=== PATIENT | male | born 1990 | race Caucasian/White ===

== ENCOUNTER 2018-03-13 10:27 | Emergency (ER) | payer SELFPAY ==
--- NOTE | 2018-03-13 11:09 | EDPHYS ---
Physician Documentation [facility] Name: Aaron Link Age: 27 yrs Sex: Male : 1990 Arrival Date: 03/13/2018 Time: 10:31 Bed 23 Private MD: None, None ED Physician Anthony Lockwood HPI: 03/13 11:02 This 27 yrs old Male presents to ER via Ambulatory with complaints of Foreign jr8 Body In Eye. 11:02 The patient is experiencing burning, pain, redness, tearing, to the right eye. Onset: jr8 The symptoms/episode began/occurred acutely, today. Duration: the symptoms are continuous. Aggravated by light, opening eye. Associated signs and symptoms: Pertinent positives: None. Patient does not utilize any form of vision correction. Severity of symptoms: At their worst the symptoms were moderate in the emergency department the symptoms are unchanged. The patient has experienced a previous episode. The patient has not recently seen a physician. Patient stated that while at work had piece of metal go into his right eye. Was wearing goggles but managed to go under his goggles. Historical: - Allergies: 10:35 Amoxicillin; aj1 - Home Meds: 10:35 None [Active]; aj1 - PMHx: 10:35 Asthma; aj1 - PSHx: 10:35 Tonsillectomy; aj1 - Immunization history:: Flu vaccine is not up to date. - Social history:: Smoking status: Patient/guardian denies using tobacco. - Ebola Screening: : Patient denies travel to an Ebola-affected area in the 21 days before illness onset. ROS: 11:02 ENT: Negative for injury, pain, and discharge, Neck: Negative for injury, pain, and jr8 swelling, Cardiovascular: Negative for chest pain, palpitations, and edema, Respiratory: Negative for shortness of breath, cough, wheezing, and pleuritic chest pain, Abdomen/GI: Negative for abdominal pain, nausea, vomiting, diarrhea, and constipation, Back: Negative for injury and pain, MS/Extremity: Negative for injury and deformity, Skin: Negative for injury, rash, and discoloration, Neuro: Negative for headache, weakness, numbness, tingling, and seizure. 11:02 Eyes: Positive for pain, redness, tearing, of the right eye. Exam: 11:02 Visual Acuity: I have reviewed the nursing documentation. jr8 11:02 Head/Face: Normocephalic, atraumatic. ENT: Nares patent. No nasal discharge, no septal abnormalities noted. Tympanic membranes are normal and external auditory canals are clear. Oropharynx with no redness, swelling, or masses, exudates, or evidence of obstruction, uvula midline. Mucous membranes moist. Neck: Trachea midline, no thyromegaly or masses palpated, and no cervical lymphadenopathy. Supple, full range of motion without nuchal rigidity, or vertebral point tenderness. No Meningismus. Cardiovascular: Regular rate and rhythm with a normal S1 and S2. No gallops, murmurs, or rubs. Normal PMI, no JVD. No pulse deficits. Respiratory: Lungs have equal breath sounds bilaterally, clear to auscultation and percussion. No rales, rhonchi or wheezes noted. No increased work of breathing, no retractions or nasal flaring. Skin: Warm, dry with normal turgor. Normal color with no rashes, no lesions, and no evidence of cellulitis. MS/ Extremity: Pulses equal, no cyanosis. Neurovascular intact. Full, normal range of motion. Neuro: Awake and alert, GCS 15, oriented to person, place, time, and situation. Cranial nerves II-XII grossly intact. Motor strength 5/5 in all extremities. Sensory grossly intact. Cerebellar exam normal. Normal gait. 11:02 Eyes: Periorbital structures: appear normal, Pupils: equal, round, and reactive to light and accomodation, Extraocular movements: intact throughout, Conjunctiva: injected, in the right eye, tearing noted, in right eye, Corneas: abrasion, that is small, approximately 2 mm(s), on the right, at 6 o'clock, a fluorescein strip employed to appreciate the findings, Sclera: no appreciated abnormality, Anterior chamber: normal, no hyphema, Lids and lashes: approximately 3 mm metal shard noted ot medial canthal region. Superficial tear seen to canthus. No bleeding. No laceration . Examination of the other eye reveals no obvious gross abnormality. Vital Signs: 10:35 BP 158 / 90; Pulse 78; Resp 18; Temp 98.8(TE); Pulse Ox 98% on R/A; Weight 102.06 kg aj1 (R); Height 6 ft. 0 in. (182.88 cm) (R); 10:35 Body Mass Index 30.52 (102.06 kg, 182.88 cm) aj1 Visual Acuity: 11:14 Left Eye Visual acuity 20/20, Pupil size 4 mm, Normal, Brisk, React To Light, Reactive ss To Accomodation; Right Eye Visual acuity 20/20, Pupil size 4 mm, Normal, Brisk, React To Light, Reactive To Accomodation; Both Eyes Visual acuity 20/20; Without Lenses; Procedures: 11:02 Eye Exam: Fluorescein. jr8 11:02 Foreign Body Removal: a piece of metal, from the right eye, conjunctiva by using jr8 alligator clamps, The patient tolerated the removal well. MDM: 10:43 Patient medically screened. jr8 11:02 Data reviewed: vital signs, nurses notes, and as a result, I will discharge patient. jr8 Data interpreted: Pulse oximetry: on room air is 98 %. Interpretation: normal. Counseling: I had a detailed discussion with the patient and/or guardian regarding: the historical points, exam findings, and any diagnostic results supporting the discharge/admit diagnosis, the need for outpatient follow up, an opthalmologist, to return to the emergency department if symptoms worsen or persist or if there are any questions or concerns that arise at home. 03/13 11:03 Order name: Fluoresene Opth strip; Complete Time: 11:03 ss 03/13 11:13 Order name: Visual Acuity; Complete Time: 11:13 ss Administered Medications: 10:52 Drug: Tetracaine Drops 0.5 % 1 drops Route: Ophthalmic; Site: right eye; ss Disposition: 16:47 Co-signature as Attending Physician, Anthony Lockwood MD. rn Disposition: 03/13/18 11:08 Discharged to Home. Impression: Foreign body in conjunctival sac, right eye, Injury of conjunctiva and corneal abrasion without foreign body. - Condition is Stable. - Discharge Instructions: Corneal Abrasion. - Prescriptions for Gentamicin 0.3 % Ophthalmic Drops - instill 2 drops by OPHTHALMIC route every 4 hours for 7 days; 1 bottle. - Medication Reconciliation Form, Thank You Letter, Antibiotic Education, Prescription Opioid Use form. - Follow up: Matthew Montemayor MD; When: 2 - 3 days; Reason: Recheck today's complaints, Continuance of care, Re-evaluation by your physician. - Problem is new. - Symptoms have improved. Signatures: Mamie Griffin RN RN aj1 Anthony Lockwood MD MD rn Smirch, Shelby, RN RN ss Roszak, Josh, PA PA jr8 Corrections: (The following items were deleted from the chart) 11:16 11:08 03/13/2018 11:08 Discharged to Home. Impression: Foreign body in conjunctival ss sac, right eye; Injury of conjunctiva and corneal abrasion without foreign body. Condition is Stable. Forms are Medication Reconciliation Form, Thank You Letter, Antibiotic Education, Prescription Opioid Use. Follow up: Matthew Montemayor; When: 2 - 3 days; Reason: Recheck today's complaints, Continuance of care, Re-evaluation by your physician. Problem is new. Symptoms have improved. jr8
--- NOTE | 2018-03-13 11:09 | ER ---
Nurse's Notes [facility] Name: Aaron Link Age: 27 yrs Sex: Male : 1990 Arrival Date: 03/13/2018 Time: 10:31 Bed 23 Private MD: None, None Diagnosis: Foreign body in conjunctival sac, right eye;Injury of conjunctiva and corneal abrasion without foreign body Presentation: 03/13 10:33 Presenting complaint: Patient states: He was grinding metal and a shard came up and hit aj1 him in the right eye. He went to an eye wash station and washed his eye out for a few seconds but it did not help. Reports pain to right eye. Denies any vision changes. Sclera is reddened to right eye. Transition of care: patient was not received from another setting of care. Onset of symptoms was March 13, 2018 at 10:20. Risk Assessment: Do you want to hurt yourself or someone else? Patient reports no desire to harm self or others. Initial Sepsis Screen: Does the patient meet any 2 criteria? No. Patient's initial sepsis screen is negative. Does the patient have a suspected source of infection? No. Patient's initial sepsis screen is negative. Care prior to arrival: None. 10:33 Method Of Arrival: Ambulatory aj1 10:33 Acuity: CATRACHITA 4 aj1 Triage Assessment: 10:35 General: Appears in no apparent distress. uncomfortable, Behavior is calm, cooperative, aj1 appropriate for age. Pain: Complains of pain in right eye Pain currently is 5 out of 10 on a pain scale. Quality of pain is described as burning, Pain began 15 minutes ago Is intermittent. EENT: Sclera/Cornea are reddened in outer aspect of conjuctiva of right eye, iris of right eye and inner aspect of conjuctiva of right eye Denies blurred vision drainage from right eye. Neuro: Level of Consciousness is awake, alert, obeys commands, Oriented to person, place, time, situation. Cardiovascular: Patient's skin is warm and dry. Respiratory: Airway is patent Respiratory effort is even, unlabored, Respiratory pattern is regular, symmetrical. Derm: Skin is pink, warm \\T\\ dry. normal. Historical: - Allergies: 10:35 Amoxicillin; aj1 - Home Meds: 10:35 None [Active]; aj1 - PMHx: 10:35 Asthma; aj1 - PSHx: 10:35 Tonsillectomy; aj1 - Immunization history:: Flu vaccine is not up to date. - Social history:: Smoking status: Patient/guardian denies using tobacco. - Ebola Screening: : Patient denies travel to an Ebola-affected area in the 21 days before illness onset. Screenin:42 Abuse screen: Denies threats or abuse. Denies injuries from another. Nutritional aj1 screening: No deficits noted. Tuberculosis screening: No symptoms or risk factors identified. Fall Risk None identified. Assessment: 10:42 General: Appears in no apparent distress. uncomfortable, Behavior is calm, cooperative, aj1 appropriate for age. Pain: Complains of pain in right eye Pain does not radiate. Quality of pain is described as burning. Neuro: Level of Consciousness is awake, alert, obeys commands, Oriented to person, place, time, situation. Cardiovascular: Patient's skin is warm and dry. Respiratory: Airway is patent Respiratory effort is even, unlabored, Respiratory pattern is regular, symmetrical. GI: No signs and/or symptoms were reported involving the gastrointestinal system. : No signs and/or symptoms were reported regarding the genitourinary system. EENT: Sclera/Cornea are reddened in outer aspect of conjuctiva of right eye, iris of right eye and inner aspect of conjuctiva of right eye Denies blurred vision. Derm: No signs and/or symptoms reported regarding the dermatologic system. Skin is pink, warm \\T\\ dry. normal. Musculoskeletal: No signs and/or symptoms reported regarding the musculoskeletal system. Circulation, motion, and sensation intact. 10:59 Reassessment: assisted FLORA Meyers with removal of foreign body of R eye. Removal ss successful, patient tolerated well. Removed with alligator forceps 3-07/16". Vital Signs: 10:35 BP 158 / 90; Pulse 78; Resp 18; Temp 98.8(TE); Pulse Ox 98% on R/A; Weight 102.06 kg aj1 (R); Height 6 ft. 0 in. (182.88 cm) (R); 10:35 Body Mass Index 30.52 (102.06 kg, 182.88 cm) aj Visual Acuity: 11:14 Left Eye Visual acuity 20/20, Pupil size 4 mm, Normal, Brisk, React To Light, Reactive ss To Accomodation; Right Eye Visual acuity 20/20, Pupil size 4 mm, Normal, Brisk, React To Light, Reactive To Accomodation; Both Eyes Visual acuity 20/20; Without Lenses; ED Course: 10:31 Patient arrived in ED. sb2 10:32 None, None is Private Physician. sb2 10:35 Triage completed. aj1 10:35 Arm band placed on Patient placed in an exam room. aj1 10:42 Duarte Rodríguez PA is PHCP. jr8 10:42 Patient has correct armband on for positive identification. Bed in low position. Call aj1 light in reach. Side rails up X 1. 10:42 No provider procedures requiring assistance completed. aj1 10:43 Anthony Lockwood MD is Attending Physician. jr8 10:59 Iraida Beck RN is Primary Nurse. ss 10:59 Patient did not have IV access during this emergency room visit. ss 11:07 Matthew Montemayor MD is Referral Physician. jr8 Administered Medications: 10:52 Drug: Tetracaine Drops 0.5 % 1 drops Route: Ophthalmic; Site: right eye; Outcome: 11:08 Discharge ordered by . jr8 11:15 Discharged to home ambulatory. ss 11:15 Condition: good 11:15 Discharge instructions given to patient, friend, Instructed on discharge instructions, follow up and referral plans. medication usage, Demonstrated understanding of instructions, follow-up care, medications, Prescriptions given X 1. 11:16 Patient left the ED. ss Signatures: Mamie Griffin RN RN aj1 Iraida Beck, KOREY RN Duarte Rodríguez PA PA jr8 Shanice Barrett sb2
== END 2018-03-13 11:16 | disposition home or self-care (01) ==
LOC: ER 10:27
PROC: 08CSXZZ Extirpation of Matter from Right Conjunctiva, External Approach (ICD-10-PCS; principal; 2018-03-13)
DX: T15.11XA Foreign body in conjunctival sac, right eye, initial encounter (principal); S05.01XA Injury of conjunctiva and corneal abrasion without foreign body, right eye, initial encounter; X58.XXXA Exposure to other specified factors, initial encounter; Y93.89 Activity, other specified; Y92.89 Other specified places as the place of occurrence of the external cause; Y99.8 Other external cause status; Z88.1 Allergy status to other antibiotic agents
CPT/HCPCS: 99283

== ENCOUNTER 2021-08-20 01:21 | Emergency (ER) | payer BC, SELFPAY ==
--- OUTSIDE RECORDS SUMMARY | 2021-08-20 01:23 | XMS REPORT | Continuity of Care Document ---
:1990 Author Organization [facility] t Address [address] [place] [address] Care Team Providers Name Role Phone Rogelio Srinivasan Attending Clinician Provider, Urgent Care Attending Clinician Unavailable Rogelio CAMPBELL Attending Clinician Unavailable Doctor Unassigned, Name Attending Clinician Unavailable Payers Payer Name Policy Type Policy Number Effective Date Expiration Date S ource Problems Condition Condition Condition Status Onset Resolution Last Treating Co mments Source Name Details Category Date Date Treatment Clinician Date No known No known Disease Unive rs active active ity of problems problems [facility] Allergies, Adverse Reactions, Alerts Allergy Allergy Status Severity Reaction(s) Onset Inactive Treating Comm ents Source Name Type Date Date Clinician AMOXICIL DRUG Active Unknown-Cmnt Un sue CARMINE INGREDI 07-21 ity of 00:00: [address] Amoxicil Drug Active Unknown - Allergy Univ ers carmine Allergy See comments 07-21 as a ity of 00:00: child [address] NO KNOWN Drug Active Univers ALLERGIE Class ity of S [facility] Social History Social Habit Start Date Stop Date Quantity Comments Source Exposure to Yes University of SARS-CoV-2 [facility] (event) [facility] Sex Assigned At [facility] [place] History [facility] 2020-07-21 2020-07-21 2 University o f Alcohol Frequency 00:00:00 00:00:00 [place] [facility] History [facility] 2020-07-21 2020-07-21 1 University o f Alcohol Std 00:00:00 00:00:00 [facility] History [facility] 2020-07-21 2020-07-21 1 University o f Alcohol Binge 00:00:00 00:00:00 [facility] Tobacco use and 2020-07-21 2020-07-21 Never used Universit y of exposure 00:00:00 00:00:00 [facility] Alcohol intake 2020-07-21 2020-07-21 Current drinker Unive rsity of 00:00:00 00:00:00 of alcohol [facility] (finding) Branch Smoking Status Start Date Stop Date Source Unknown if ever smoked [facility] Never smoker [facility] Medications Ordered Filled Start Stop Current Ordering Indication Dosage Frequency Signature Comments Components Source Medication Medication Date Date Medication? Clinician (SIG) Name Name albuterol Yes 2{puff} Inhale 2 U nivers 90 1-07 Puffs ity of mcg/actuati 19:36: every 6 Jonas as on inhaler 15 (six) Medical hours as Branch needed for Wheezing or Shortness of Breath. albuterol Yes 2{puff} Inhale 2 U nivers 90 1-07 Puffs ity of mcg/actuati 19:36: every 6 Jonas as on inhaler 15 (six) Medical hours as Branch needed for Wheezing or Shortness of Breath. montelukast Yes [id number] 10mg Take 1 Univers 10 mg 1-07 tablet by ity of tablet 00:00: mouth [place] 00 daily. Medical Branch montelukast Yes [id number] 10mg Take 1 Univers 10 mg 1-07 tablet by ity of tablet 00:00: mouth [place] 00 daily. [facility] Branch Vital Signs Vital Name Observation Time Observation Value Comments Source Systolic blood 2020-07-21 19:07:00 135 mm[Hg] Univer sity of pressure [facility] Diastolic blood 2020-07-21 19:07:00 87 mm[Hg] Unive rsity of [facility] Heart rate 2020-07-21 19:07:00 81 /min [facility] Body temperature 2020-07-21 19:07:00 36.72 P[facility] Respiratory rate 2020-07-21 19:07:00 18 /min [facility] Body height 2020-07-21 19:07:00 182.9 cm [facility] Body weight 2020-07-21 19:07:00 106.595 kg [facility] BMI 2020-07-21 19:07:00 31.87 kg/m2 Universi ty of [facility] Oxygen saturation in 2020-07-21 19:07:00 98 /min [facility] Arterial blood by [facility] Pulse oximetry Branch Procedures This patient has no known procedures. Encounters Start End Encounter Admission Attending Care Care Encounter Source Date/Time Date/Time Type Type Clinicians Facility Department ID 2020-08-29 2020-08-29 Refill Shannan [facility] [id number] Univers 00:00:00 00:00:00 Israel Mercado [facility] [id number] i ty of [place] [id number] Jonas as Professio [phone] [address] 2020-07-21 2020-07-21 Urgent Provider, [facility] Urgent Care [facility] [id number] Univers 12:52:49 13:44:10 Care Israel Campbell [facility] [id number] ity of [place] [id number] Jonas as Professio [phone] [address] 2020-07-21 2020-07-[address] [facility] [id number] Univers 13:00:00 13:00:00 ISRAEL russo [facility] 2020-07-21 2020-07-21 Letter Doctor GIOVANNY [id number] Univers 00:00:00 00:00:00 (Out) Unassigned, GIANNI [id number] ity of [place] [facility] [id number] Jonas as [phone] [place] [address] Branch Results This patient has no known results.
[2021-08-20] MEDS ORDERED: ONDANSETRON 4 MG/2 ML VIAL ONE (02:03)
[2021-08-20] MEDS ORDERED: FAMOTIDINE 20 MG/2 ML VIAL IV ONE (02:03)
[2021-08-20] MEDS ORDERED: NA CHLORIDE 0.9% 1,000 ML ONE (02:03)
[2021-08-20] MEDS ORDERED: MORPHINE 4 MG/ML SYR ONE (02:03)
[2021-08-20 02:14] LABS: Urine Blood Negative (Negative); Urine Glucose Negative (Negative); Urine Protein Negative (Negative); Urine Specific Gravity >=1.030 (1.005-1.030)
[2021-08-20 02:20] LABS: Absolute Lymphocytes (CBC) 3.5 K/uL (0.7-4.9); Hematocrit 42.5 % (39.6-49.0); Lymphocytes % 31.4 % (15.3-44.8); MPV 9.2 fL (7.6-11.3); RBC Red Blood Cell Count 4.89 M/uL (4.33-5.43)
[2021-08-20 02:28] LABS: Urine Bacteria <20 /HPF (NONE SEEN); Urine Mucus 2+ /HPF (NONE SEEN); Urine RBC <5 /HPF (NONE SEEN)
[2021-08-20 02:37] LABS: ALT/SGPT 35 U/L (12-78); AST/SGOT 18 U/L (15-37); Alkaline Phosphatase 83 U/L (45-117); BUN Blood Urea Nitrogen 16 mg/dL (7-18); Bicarbonate 26 mmol/L (21-32); Bilirubin Direct < 0.1 mg/dL (0-0.2); Bilirubin Total 0.3 mg/dL (0.2-1.0); Glucose Level 134 mg/dL (74-106); Lipase 48 U/L (73-393); Potassium 4.1 mmol/L (3.5-5.1); Protein, Total 8.3 g/dL (6.4-8.2); Sodium Level 137 mmol/L (136-145)
--- NOTE | 2021-08-20 04:37 | EDPHYS ---
Physician Documentation [facility] Name: Aaron Link Age: 31 yrs Sex: Male : 1990 Arrival Date: 08/20/2021 Time: 01:25 Bed 19 Private MD: ED Physician Fredo Peguero HPI: 08/20 02:10 This 31 yrs old Male presents to ER via Ambulatory with complaints of Abdominal Pain, cp Nausea/Vomiting. 02:10 The patient presents with abdominal pain in the upper abdomen. cp 02:11 Onset: The symptoms/episode began/occurred last night. The symptoms do not radiate. cp Associated signs and symptoms: Pertinent positives: nausea and vomiting, constipation, Pertinent negatives: chest pain, diarrhea, dysuria, fever. The symptoms are described as constant. Historical: - Allergies: 01:48 Amoxicillin; tw5 - Home Meds: 01:48 albuterol as needed [Active]; tw5 - PMHx: 01:48 Asthma; tw5 - PSHx: 01:48 None; tw5 - Immunization history:: Flu vaccine is not up to date. - Social history:: Smoking status: Patient denies any tobacco usage or history of. ROS: 02:11 Eyes: Negative for injury, pain, redness, and discharge. cp 02:11 Constitutional: Negative for body aches, chills, fever, poor PO intake. 02:11 Cardiovascular: Negative for chest pain, edema, palpitations. 02:11 Respiratory: Negative for cough, shortness of breath, wheezing. 02:11 Abdomen/GI: Positive for abdominal pain, nausea and vomiting, Negative for diarrhea, constipation, hematemesis, black/tarry stool, rectal bleeding. 02:11 Neuro: Negative for altered mental status, headache, weakness. 02:11 All other systems are negative. Exam: 02:12 Head/Face: Normocephalic, atraumatic. cp 02:12 Constitutional: The patient appears in no acute distress, alert, awake, non-diaphoretic, non-toxic, well developed, well nourished, uncomfortable. 02:12 Eyes: Periorbital structures: appear normal, Conjunctiva: normal, no exudate, no injection, Sclera: no appreciated abnormality, Lids and lashes: appear normal, bilaterally. 02:12 ENT: External ear(s): are unremarkable, Nose: is normal, Mouth: Lips: moist, Oral mucosa: moist, Posterior pharynx: Airway: no evidence of obstruction, patent. 02:12 Chest/axilla: Inspection: normal. 02:12 Cardiovascular: Rate: normal. 02:12 Respiratory: the patient does not display signs of respiratory distress, Respirations: normal, no use of accessory muscles, no retractions, labored breathing, is not present, Breath sounds: are clear throughout, no decreased breath sounds, no stridor, no wheezing. 02:12 Abdomen/GI: Inspection: abdomen appears normal, Bowel sounds: active, all quadrants, Palpation: soft, in all quadrants, severe abdominal tenderness, in the epigastric area and right upper quadrant, rebound tenderness, is not appreciated, voluntary guarding, is elicited in the epigastric area and right upper quadrant. 02:12 Neuro: Orientation: to person, place \T\ time. Mentation: is normal. Vital Signs: 01:45 BP 142 / 77; Pulse 71; Resp 18; Temp 98.0; Pulse Ox 98% on R/A; Weight 111.13 kg; tw5 Height 6 ft. 0 in. (182.88 cm); Pain 7/10; 02:15 BP 149 / 96; Pulse 55; Resp 18; Pulse Ox 98% on R/A; tw5 03:23 BP 118 / 103; Pulse 60; Resp 18; Pulse Ox 100% on R/A; Pain 2/10; tw5 03:56 BP 123 / 65; Pulse 62; Resp 18; Pulse Ox 100% on R/A; tw5 04:56 BP 121 / 82; Pulse 64; Resp 17 S; Pulse Ox 98% on R/A; lg3 01:45 Body Mass Index 33.23 (111.13 kg, 182.88 cm) tw5 MDM: 01:59 Patient medically screened. cp 02:15 Differential diagnosis: cholecystitis, Cholelithiasis, pancreatitis, Peptic Ulcer cp Disease, Perf. Duodenal Ulcer, Perf. Gastric Ulcer, Ureterolithiasis, urinary tract infection. 04:34 Differential diagnosis: Nonspecific abd pain, gastritis, cholecystitis, pancreatitis, mh7 viral gastroenteritis, gastroenteritis. Data reviewed: vital signs, nurses notes, lab test result(s), amylase and lipase, CBC, electrolytes, urinalysis, radiologic studies, CT scan. Data interpreted: Pulse oximetry: on room air is 100 %. Interpretation: normal. Counseling: I had a detailed discussion with the patient and/or guardian regarding: the historical points, exam findings, and any diagnostic results supporting the discharge/admit diagnosis, lab results, radiology results, the need for outpatient follow up, a general surgeon. Response to treatment: the patient's symptoms have resolved after treatment, the patient's blood pressure is in an acceptable range, mental status has returned to baseline, the patient no longer shows bradycardia, the patient is not short of breath, the patient is not tachycardic, the patient's pain is gone, the patient's temperature has normalized, patient is well hydrated. 08/20 01:58 Order name: Basic Metabolic Panel; Complete Time: 02:43 tw5 08/20 02:43 Interpretation: Normal except: GLUC 134; GFR 83. cp 08/20 01:58 Order name: CBC with Diff; Complete Time: 02:43 tw5 08/20 02:44 Interpretation: Normal except: WBC 11.20. cp 08/20 01:58 Order name: Hepatic Function; Complete Time: 02:43 tw5 08/20 02:44 Interpretation: Normal except: TP 8.3; GLOB 4.3; A/G 0.9. cp 08/20 01:58 Order name: Lipase; Complete Time: 02:43 tw5 08/20 01:59 Order name: Urine Microscopic Only cp 08/20 02:00 Order name: Urine Microscopic Only; Complete Time: 02:43 EDMS 08/20 01:58 Order name: IV Saline Lock; Complete Time: 02:10 tw5 08/20 01:59 Order name: CT Abd/Pelvis - IV Contrast Only cp 08/20 02:14 Order name: Urine Dipstick-Ancillary; Complete Time: 02:43 EDMS 08/20 02:16 Order name: XRAY Chest (1 view) cp 08/20 01:58 Order name: Labs collected and sent; Complete Time: 02:10 tw5 08/20 01:59 Order name: Urine Dipstick-Ancillary (obtain specimen); Complete Time: 02:16 cp Administered Medications: 02:10 Drug: NS 0.9% 1000 ml Route: IV; Rate: 1 bolus; Site: right antecubital; tw5 03:24 Follow up: Response: No adverse reaction; IV Status: Completed infusion; IV Intake: tw5 1000ml 02:10 Drug: Zofran (Ondansetron) 4 mg Route: IVP; Site: right antecubital; tw5 03:24 Follow up: Response: No adverse reaction 5 02:10 Drug: Pepcid (famotidine) 20 mg Route: IVP; Site: right antecubital; tw5 03:24 Follow up: Response: No adverse reaction 5 02:10 Drug: morphine 4 mg Route: IVP; Site: right antecubital; tw5 03:24 Follow up: Response: No adverse reaction; Pain is decreased; RASS: Alert and Calm (0) 5 Disposition: 05:20 Co-signature as Attending Physician, Fredo Peguero MD. [facility] Disposition Summary: 08/20/21 04:36 Discharge Ordered Location: Home [facility] Problem: new [facility] Symptoms: have improved [facility] Condition: Stable [facility] Diagnosis - Other cholelithiasis without obstruction [facility] Followup: [facility] - With: Private Physician - When: 1 - 2 days - Reason: Worsening of condition, Recheck today's complaints, Continuance of care, Re-evaluation by your physician Followup: [facility] - With: Guille Velasquez MD - When: 2 - 3 days - Reason: Worsening of condition, Recheck today's complaints Discharge Instructions: - Discharge Summary Sheet [facility] - Cholelithiasis, [id number] [facility] Forms: - Medication Reconciliation Form [facility] - Thank You Letter [facility] - Antibiotic Education [facility] - Prescription Opioid Use [facility] Prescriptions: - ondansetron 4 mg Oral tablet,disintegrating - place 1 tablet by TRANSLINGUAL route every 8 hours As needed; 10 tablet; [facility] Refills: 0, Product Selection Permitted - dicyclomine 20 mg Oral Tablet - take 1 tablet by ORAL route 4 times per day As needed; 20 tablet; Refills: 0, [facility] Product Selection Permitted - Tylenol-Codeine #3 300 mg-30 mg Oral - take 2 tablet by ORAL route every 6 hours As needed; 15 tablet; Refills: 0, [facility] Product Selection Permitted Signatures: Dispatcher [employer] EDIA Ayush Stoll PA PA cp Holmes, Maurice, MD MD [facility] Dior Wilburn 5
--- NOTE | 2021-08-20 04:37 | ER ---
Nurse's Notes [facility] Name: Aaron Link Age: 31 yrs Sex: Male : 1990 Arrival Date: 08/20/2021 Time: 01:25 Bed 19 Private MD: Diagnosis: Other cholelithiasis without obstruction Presentation: 08/20 01:45 Chief complaint: Patient states: "So I have been constipated for a while now at least 5 tw5 days. I had some food out for my wifes birthday on Saturday. I had abdominal pain, nausea, and it lasted for 10 hours. I woke up to her going into labor in [place]. The same pain started again around 9 last night and has gotten progressively worse over the past couple of hours with dry heaving. I feel like something gets stuck in my throat.". Coronavirus screen: Vaccine status: Patient reports receiving the 2nd dose of the covid vaccine. [employer]. Ebola Screen: Patient negative for fever greater than or equal to 101.5 degrees Fahrenheit, and additional compatible Ebola Virus Disease symptoms Patient denies exposure to infectious person. Patient denies travel to an Ebola-affected area in the 21 days before illness onset. Initial Sepsis Screen: Does the patient meet any 2 criteria? Yes Does the patient have a suspected source of infection? No. Patient's initial sepsis screen is negative. Risk Assessment: Do you want to hurt yourself or someone else? Patient reports no desire to harm self or others. Onset of symptoms is unknown. 01:45 Method Of Arrival: Ambulatory tw5 01:45 Acuity: CATRACHITA 3 tw5 Triage Assessment: 01:48 General: Appears uncomfortable, Behavior is cooperative, appropriate for age. Pain: tw5 Complains of pain in right upper quadrant and left upper quadrant Pain currently is 7 out of 10 on a pain scale. Quality of pain is described as crampy. GI: Reports constipation, nausea, vomiting. Historical: - Allergies: 01:48 Amoxicillin; tw5 - Home Meds: 01:48 albuterol as needed [Active]; tw5 - PMHx: 01:48 Asthma; tw5 - PSHx: 01:48 None; tw5 - Immunization history:: Flu vaccine is not up to date. - Social history:: Smoking status: Patient denies any tobacco usage or history of. Screenin:50 Abuse screen: Denies threats or abuse. Denies injuries from another. Nutritional tw5 screening: No deficits noted. Tuberculosis screening: No symptoms or risk factors identified. Fall Risk None identified. Assessment: 02:15 General: Appears uncomfortable, Behavior is calm, cooperative, appropriate for age. tw5 Pain: Pain currently is 7 out of 10 on a pain scale. at worst was 9 out of 10 on a pain scale. Cardiovascular: Capillary refill < 3 seconds is brisk in bilateral fingers. Respiratory:. GI: Bowel sounds Abdomen is tender to palpation in right upper quadrant and left upper quadrant. 03:23 Reassessment: Patient states feeling better. Patient states symptoms have improved. tw5 General: Reports " I am feeling a lot better, thank you.". Pain: Pain currently is 2 out of 10 on a pain scale. GI: nausea has improved. 03:56 Reassessment: Patient and/or family updated on plan of care and expected duration. Pain tw5 level reassessed. Patient is alert, oriented x 3, equal unlabored respirations, skin warm/dry/pink. Vital Signs: 01:45 BP 142 / 77; Pulse 71; Resp 18; Temp 98.0; Pulse Ox 98% on R/A; Weight 111.13 kg; tw5 Height 6 ft. 0 in. (182.88 cm); Pain 7/10; 02:15 BP 149 / 96; Pulse 55; Resp 18; Pulse Ox 98% on R/A; tw5 03:23 BP 118 / 103; Pulse 60; Resp 18; Pulse Ox 100% on R/A; Pain 2/10; tw5 03:56 BP 123 / 65; Pulse 62; Resp 18; Pulse Ox 100% on R/A; tw5 04:56 BP 121 / 82; Pulse 64; Resp 17 S; Pulse Ox 98% on R/A; lg3 01:45 Body Mass Index 33.23 (111.13 kg, 182.88 cm) tw5 ED Course: 01:25 Patient arrived in ED. ja2 01:48 Triage completed. tw5 01:48 Arm band placed on left wrist. tw5 01:52 Ayush Stoll PA is PHCP. cp 01:52 Fredo Peguero MD is Attending Physician. cp 01:58 Dior Wilburn is Primary Nurse. tw5 01:58 Initial lab(s) drawn, by me, sent to lab. Urine collected: clean catch specimen, clear, tw5 Amount Voided: 150mL. Inserted saline lock: 20 gauge in right antecubital area, using aseptic technique. Blood collected. 02:10 Basic Metabolic Panel Sent. tw5 02:10 CBC with Diff Sent. tw5 02:10 Hepatic Function Sent. tw5 02:10 Lipase Sent. tw5 02:15 Urine Microscopic Only Sent. tw5 02:15 Urine Microscopic Only Sent. tw5 02:34 XRAY Chest (1 view) In Process Unspecified. EDMS 03:13 CT Abd/Pelvis - IV Contrast Only In Process Unspecified. EDMS 03:56 Patient has correct armband on for positive identification. Placed in gown. Bed in low tw5 position. Call light in reach. Side rails up X 1. Side rails up X2. Adult w/ patient. Pulse ox on. NIBP on. Door closed. Noise minimized. Lights dimmed. Warm blanket given. Verbal reassurance given. Assisted to bathroom. 04:36 Guille Velasquez MD is Referral Physician. [facility] 04:55 No provider procedures requiring assistance completed. IV discontinued, intact, lg3 bleeding controlled, No redness/swelling at site. Pressure dressing applied. Administered Medications: 02:10 Drug: NS 0.9% 1000 ml Route: IV; Rate: 1 bolus; Site: right antecubital; tw5 03:24 Follow up: Response: No adverse reaction; IV Status: Completed infusion; IV Intake: tw5 1000ml 02:10 Drug: Zofran (Ondansetron) 4 mg Route: IVP; Site: right antecubital; tw5 03:24 Follow up: Response: No adverse reaction tw5 02:10 Drug: Pepcid (famotidine) 20 mg Route: IVP; Site: right antecubital; tw5 03:24 Follow up: Response: No adverse reaction tw5 02:10 Drug: morphine 4 mg Route: IVP; Site: right antecubital; tw5 03:24 Follow up: Response: No adverse reaction; Pain is decreased; RASS: Alert and Calm (0) tw5 Intake: 03:24 IV: 1000ml; Total: 1000ml. tw5 Outcome: 04:36 Discharge ordered by . mh7 04:55 Discharged to home ambulatory, with family. lg3 04:55 Condition: stable 04:55 Discharge instructions given to patient, Instructed on discharge instructions, follow up and referral plans. medication usage, Prescriptions given X 3. 04:56 Patient left the ED. lg3 Signatures: Dispatcher [employer] EDMS Ayush Stoll PA PA cp Gibson, Lacie, RN RN lg3 Fredo Peguero MD MD 7 Liliana Martin Dior Bill 5
[2021-08-20 05:08] VITALS: TEMP 98
[2021-08-20 05:13] VITALS: BP 121/82; O2SAT 98
--- NOTE | 2021-08-20 11:04 | RAD REPORT ---
EXAM DESCRIPTION: RAD - Chest Single View - 08/20/2021 2:35 am CLINICAL HISTORY: epigastric pain Chest pain. COMPARISON: No comparisons FINDINGS: Portable technique limits examination quality. Mildly prominent interstitial lung markings seen which could indicate mild viral infection. The heart is normal in size. No displaced fractures.
--- NOTE | 2021-08-21 11:54 | RAD REPORT ---
EXAM DESCRIPTION: Abdomen Pelvis W Contrast 08/20/2021 3:33 AM INFRASTRUCTURE TECH CLINICAL HISTORY: 31 years, Male, ABD PAIN COMPARISON: None. TECHNIQUE: Contrast-enhanced images of the abdomen and pelvis were performed utilizing 5 mm slice th ickness at 5 mm interval reconstruction from the lung bases to the ischial tuberosities after the adm inistration IV contrast. In addition multiplanar reformats in the coronal and sagittal plane were obtained and reviewed. This exam was performed according to our departmental dose-optimization protocol, which includes auto mated exposure control, adjustment of the mA and/or kV according to patient size and/or use of iterat kan reconstruction technique. FINDINGS: The lung bases demonstrate to be clear. The liver, pancreas, spleen and adrenal glands demonstrate to be unremarkable, no focal lesions are n oted. The gallbladder demonstrated presence of a small rim high density structures corresponding to c holelithiasis. There is no biliary duct dilatation. The kidneys demonstrate normal uptake of contrast media. No evidence for nephrolithiasis and/or hydro nephrosis. Grossly the unopacified stomach, small bowel and large bowel demonstrate to be within normal limits. There is no evidence for bowel dilatation/or free air. The appendix is normal. The urinary bladder demonstrate to be unremarkable. The prostate gland is normal. The aorta demon strate to be normal. There is no retroperitoneal lymphadenopathy. There is no evidence for ascites/ or abnormal fluid collections. The rest of the soft tissue and bony structures are within normal limi ts. IMPRESSION: Cholelithiasis. Otherwise unremarkable CT scan of the abdomen and pelvis with contrast. Electronically signed by: Daljit Smith MD 08/20/2021 3:35 AM INFRASTRUCTURE TECH Due to temporary technical issues with the PACS/Fluency reporting system, reports are being signed by the in house radiologist without review as a courtesy to ensure prompt reporting. The interpreting r adiologist is fully responsible for the content of the report.
== END 2021-08-20 04:56 | disposition home or self-care (01) ==
LOC: ER 01:21
DX: K80.80 Other cholelithiasis without obstruction (principal); Z88.1 Allergy status to other antibiotic agents
CPT/HCPCS: 96361; 85025; 80048; 36415; 80076; 83690; 74177; 71045; 96375; 96374; 99284; Q9967; J7030; J2405; 81003; 81015

== ENCOUNTER 2021-09-21 06:33 | Day surgery (SDC) | payer BC ==
[2021-09-19 10:38] LABS: Absolute Lymphocytes (CBC) 2.8 K/uL (0.7-4.9); Hematocrit 39.6 % (39.6-49.0); Lymphocytes % 39.4 % (15.3-44.8); RBC Red Blood Cell Count 4.65 M/uL (4.33-5.43)
[2021-09-19 10:54] LABS: ALT/SGPT 37 U/L (12-78); AST/SGOT 16 U/L (15-37); Alkaline Phosphatase 80 U/L (45-117); Amylase 34 U/L (25-115); BUN Blood Urea Nitrogen 14 mg/dL (7-18); Bicarbonate 26 mmol/L (21-32); Bilirubin Direct 0.2 mg/dL (0-0.2); Bilirubin Total 0.6 mg/dL (0.2-1.0); Glucose Level 97 mg/dL (74-106); Potassium 4.2 mmol/L (3.5-5.1); Protein, Total 7.9 g/dL (6.4-8.2); Sodium Level 139 mmol/L (136-145)
--- NOTE | 2021-09-19 12:49 | EKG ---
Test Date: 2021-09-19 Test Time: 10:23:35 Security Architect: CIRILO MEASUREMENT RESULTS: Intervals: Rate: 55 AK: 148 QRSD: 110 QT: 418 QTc: 399 [place]: P: 14 AK: 148 QRS: 69 T: 50 INTERPRETIVE STATEMENTS: Sinus bradycardia Otherwise normal ECG No previous ECG available for comparison Electronically Signed On 09-19-21 12:49:18 VEST MAKER by Andres Mejia
[2021-09-21] MEDS ORDERED: propofoL 200 MG/20 ML VIAL IV ONE (06:57)
[2021-09-21] MEDS ORDERED: ROCURONIUM 50 MG/5 ML VIAL IV ONE (06:58)
[2021-09-21] MEDS ORDERED: ONDANSETRON 4 MG/2 ML VIAL ONE ×2 (06:58→09:09)
[2021-09-21] MEDS ORDERED: dexAMETHasone 10 MG/ML VIAL ONE (06:58)
[2021-09-21] MEDS ORDERED: FENTANYL CITR 250 MCG/5 ML ONE (06:58)
[2021-09-21] MEDS ORDERED: MIDAZOLAM HCL 2 MG/2 ML INJ ONE (06:58)
[2021-09-21] MEDS ORDERED: LIDOCAINE 1% MPF 5 ML VIAL ONE (06:58)
[2021-09-21] MEDS ORDERED: CELECOXIB 100 MG CAPSULE ONE (07:10)
[2021-09-21] MEDS ORDERED: CEFOXITIN SODIUM 1 GM/VIAL ONE (07:10)
[2021-09-21] MEDS ORDERED: ACETAMINOPHEN 500 MG TAB ONE (07:10)
[2021-09-21] MEDS: Ringers Lactate 1,000 ML IV ONE ×2 (07:15→08:59)
[2021-09-21] MEDS ORDERED: Phenylephrine HCl 10 MG/ML 1 ML VIAL ONE (08:03)
[2021-09-21] MEDS ORDERED: Mastisol Adhesive Liq ONE (08:27)
[2021-09-21] MEDS ORDERED: KETOROLAC 30 MG/ML INJ ONE ×2 (08:29→09:37)
--- NOTE | 2021-09-21 08:37 | P.OP ---
Fan Balancer: Dinorah STOREY Preoperative diagnosis: Chronic cholecystitis and cholelithiasis Postoperative diagnosis: Same Primary procedure: Laparoscopic cholecystectomy Anesthesia: General Estimated blood loss: Minimal Specimen: Gallbladder Findings: As above Operative Technique: Patient brought to the OR and placed in the supine position. General anesthesia begun and patient prepped draped in the usual sterile fashion. Marcaine 0.5% infiltrated locally 15 blade used to make a 1 cm supraumbilical midline incision. Subtenons tissue divided and fascia identified and divided. #1 Vicryl stay sutures placed. Peritoneal cavity entered with sharp and blunt dissection. 12 mm trocar placed into the peritoneal cavity under direct vision. Pneumoperitoneum established and three 5 mm trochars placed under direct vision. One in the epigastric region just to the right of midline and two in the right subcostal region. Laparoscopy revealed chronic inflammation of the gallbladder. Fundus that identified and retracted superiorly. Infundibulum identified and retracted inferolaterally. Cystic duct and cystic artery clearly identified with blunt dissection. Clips placed and both structures divided. Gallbladder removed from the liver bed utilizing cautery. Bleeding on the liver bed controlled with cautery. Gallbladder was retrieved through the umbilicus via Endo Catch bag. Right upper quadrant irrigated and effluent was clear. There was no evidence of bleeding or bile leakage appreciated. Subsequently, all trochars were removed under direct vision. Stay sutures were tied to each other to reapproximate the fascial defect. 3-0 chromic was used to reapproximate subcutaneous tissue and closed skin. Sterile dressing applied and patient awakened. Patient taken to recovery room in good general condition. Transferred to: Recovery Room Condition: Good
[2021-09-21] MEDS: MEPERIDINE HCL 25 MG/ML SYR ONE ×2 (09:09→09:19)
[2021-09-21] MEDS: HYDROMORPHONE HCL 1 MG/ML INJ ONE ×6 (09:14→09:44)
[2021-09-21] MEDS ORDERED: HYDROCODONE/APAP 7.5/325 MG TAB PO ONE (10:06)
[2021-09-21 10:18] VITALS: TEMP 97.9
[2021-09-21] MEDS ORDERED: HYDROCODONE/APAP 7.5/325 MG TAB ONE (10:44)
[2021-09-21 11:06] VITALS: BP 113/46; O2SAT 97
== END 2021-09-21 11:40 | disposition home or self-care (01) ==
LOC: OR 06:33
PROVIDERS: ATTEND Surgery
PROC: 0FT44ZZ Resection of Gallbladder, Percutaneous Endoscopic Approach (ICD-10-PCS; principal; 2021-09-21 07:30)
DX: K80.10 Calculus of gallbladder with chronic cholecystitis without obstruction (principal); Z20.822 Contact with and (suspected) exposure to COVID-19; Z88.1 Allergy status to other antibiotic agents
CPT/HCPCS: 93005; 85025; 80048; 36415; 82150; 80076; 88304; 47562; U0003; J2704; J2370; J2250; J3010; J1100; J2175; J1170 ×3; J7120; J0694; J2405 ×2

== ENCOUNTER 2022-05-26 16:22 | Emergency (ER) | payer OTHER, BC ==
--- OUTSIDE RECORDS SUMMARY | 2022-05-26 16:25 | XMS REPORT | Continuity of Care Document ---
:1990 Author Organization [facility] t Address [address] [place] [address] [address] [place] [address] Care Team Providers Name Role Phone Starr Srinivasan Attending Clinician Provider, [facility] Attending Clinician Unavailable STARR CAMPBELL Attending Clinician Unavailable Doctor Unassigned, [place] Attending Clinician Unavailable Payers Payer Name Policy Type Policy Number Effective Date Expiration Date S ource Problems Condition Condition Condition Status Onset Resolution Last Treating Co mments Source Name Details Category Date Date Treatment Clinician Date No known No known Disease Unive rs active active ity of problems problems [facility] Allergies, Adverse Reactions, Alerts Allergy Allergy Status Severity Reaction(s) Onset Inactive Treating Comm ents Source Name Type Date Date Clinician AMOXICIL DRUG Active Unknown-Cmnt Un sue CARMINE INGREDI 07-21 ity of 00:00: [address] Amoxicil Drug Active Unknown - Allergy Univ ers carmine Allergy See comments 07-21 as a ity of 00:00: child [address] NO KNOWN Drug Active Univers ALLERGIE Class ity of S [facility] Social History Social Habit Start Date Stop Date Quantity Comments Source Exposure to Yes University of SARS-CoV-2 [place] [facility] (event) Branch Sex Assigned At Univers[facility] y of [place] [facility] [place] History [facility] 2020-07-21 2020-07-21 2 University o f Alcohol Frequency 00:00:00 00:00:00 [place] [facility] History SDMO 2020-07-21 2020-07-21 1 University o f Alcohol Std 00:00:00 00:00:00 [place] [facility] Drinks [facility] History SDOH 2020-07-21 2020-07-21 1 University o f Alcohol Binge 00:00:00 00:00:00 [place] [facility] Tobacco use and 2020-07-21 2020-07-21 Never used Universit y of exposure 00:00:00 00:00:00 [facility] Alcohol intake 2020-07-21 2020-07-21 Current drinker Unive rsity of 00:00:00 00:00:00 of alcohol [facility] (finding) Branch Smoking Status Start Date Stop Date Source Unknown if ever smoked [facility] Never smoker [facility] Medications Ordered Filled Start Stop Current Ordering [...] Wheezing or Shortness of Breath. montelukast Yes [id number] 10mg Take 1 Univers 10 mg 1-07 tablet by ity of tablet 00:00: mouth [place] 00 daily. [facility] Branch montelukast Yes [id number] 10mg Take 1 Univers 10 mg 1-07 tablet by ity of tablet 00:00: mouth [place] 00 daily. [facility] Vital Signs Vital Name Observation Time Observation Value Comments Source Systolic blood 2020-07-21 19:07:00 135 mm[Hg] Univer sity of pressure [facility] Diastolic blood 2020-07-21 19:07:00 87 mm[Hg] [facility] Heart rate 2020-07-21 19:07:00 81 /min [facility] Body temperature 2020-07-21 19:07:00 36.72 [facility] 2020-07-21 19:07:00 18 /min [facility] Body height 2020-07-21 19:07:00 182.9 cm [facility] Body weight 2020-07-21 19:07:00 106.595 kg [facility] BMI 2020-07-21 19:07:00 31.87 kg/m2 Universi ty of [facility] Oxygen saturation in 2020-07-21 19:07:00 98 /min [facility] Arterial blood by [facility] Pulse oximetry Branch Procedures This patient has no known procedures. Encounters Start End Encounter Admission Attending Care Care Encounter Source Date/Time Date/Time Type Type Clinicians Facility Department ID 2020-08-29 2020-08-29 Refill Shannan [facility] [id number] Univers 00:00:00 00:00:00 Starr Mercado [facility] [id number] i ty of [place] [id number] Jonas as Professio [id number] [address] 2020-07-21 2020-07-21 Urgent Provider, [facility] [id number] Univers 12:52:49 13:44:10 Care Starr Campbell [facility] [id number] ity of [place] [id number] Jonas as Professio [id number] [address] 2020-07-21 2020-07-[address] [facility] [id number] Univers 13:00:00 13:00:00 STARR russo [facility] 2020-07-21 2020-07-21 Letter Doctor GIOVANNY [id number] Univers 00:00:00 00:00:00 (Out) Unassigned, GIANNI [id number] ity of [place] [facility] [id number] Jonas as [phone] [place] [id number] Branch Results This patient has no known results.
[2022-05-26] MEDS ORDERED: FLUORESCEIN SODIUM 1 MG/WRAP ONE (16:32)
[2022-05-26] MEDS ORDERED: TETRACAINE HCL 0.5% 4ML OPTH ONE (16:32)
--- NOTE | 2022-05-26 16:48 | EDPHYS ---
Physician Documentation [facility] Name: Aaron Link Age: 32 yrs Sex: Male : 1990 Arrival Date: 05/26/2022 Time: 16:24 Bed 16 Private MD: ED Physician Ashley Vick HPI: 05/26 16:39 This 32 yrs old Unknown Male presents to ER via Ambulatory with complaints of Eye jl9 Injury. 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 . 16:39 The patient is experiencing pain, redness, tearing, The patient sustained Unknown. to jl9 the left eye, caused by an unknown mechanism. Onset: The symptoms/episode began/occurred just prior to arrival. Duration: the symptoms are continuous. Aggravated by blinking, Alleviated by nothing. Associated signs and symptoms: Pertinent positives:. Patient does not utilize any form of vision correction. Severity of symptoms: Pain is currently a 3 / 10. Historical: - Allergies: 16:35 Amoxicillin; jl7 - Home Meds: 16:35 albuterol as needed [Active]; jl7 - PMHx: 16:35 Asthma; jl7 - PSHx: 16:35 Tonsillectomy; Cholecystectomy; jl7 - Immunization history:: Adult Immunizations not up to date, Last tetanus immunization: > 10 years ago. - Social history:: Smoking status: Patient denies any tobacco usage or history of. ROS: 16:40 Constitutional: Negative for fever, chills, and weight loss. jl9 16:40 ENT: Negative for injury, pain, and discharge, Neck: Negative for injury, pain, and swelling, Cardiovascular: Negative for chest pain, palpitations, and edema, Respiratory: Negative for shortness of breath, cough, wheezing, and pleuritic chest pain, Abdomen/GI: Negative for abdominal pain, nausea, vomiting, diarrhea, and constipation, Back: Negative for injury and pain, : Negative for injury, bleeding, discharge, and swelling, MS/Extremity: Negative for injury and deformity, Skin: Negative for injury, rash, and discoloration, Neuro: Negative for headache, weakness, numbness, tingling, and seizure, Psych: Negative for depression, anxiety, suicide ideation, homicidal ideation, and hallucinations, Allergy/Immunology: Negative for hives, rash, and allergies, Endocrine: Negative for neck swelling, polydipsia, polyuria, polyphagia, and marked weight changes, Hematologic/Lymphatic: Negative for swollen nodes, abnormal bleeding, and unusual bruising. 16:40 Eyes: Positive for pain, redness, tearing. Exam: 16:44 Visual Acuity: I have reviewed the nursing documentation. jl9 16:44 Constitutional: This is a well developed, well nourished patient who is awake, alert, and in no acute distress. Head/Face: Normocephalic, atraumatic. 16:44 Neck: Trachea midline, no thyromegaly or masses palpated, and no cervical lymphadenopathy. Supple, full range of motion without nuchal rigidity, or vertebral point tenderness. No Meningismus. Chest/axilla: Normal chest wall appearance and motion. Nontender with no deformity. No lesions are appreciated. Cardiovascular: Regular rate and rhythm with a normal S1 and S2. No gallops, murmurs, or rubs. Normal PMI, no JVD. No pulse deficits. Respiratory: Lungs have equal breath sounds bilaterally, clear to auscultation and percussion. No rales, rhonchi or wheezes noted. No increased work of breathing, no retractions or nasal flaring. Abdomen/GI: Soft, non-tender, with normal bowel sounds. No distension or tympany. No guarding or rebound. No evidence of tenderness throughout. Back: No spinal tenderness. No costovertebral tenderness. Full range of motion. Skin: Warm, dry with normal turgor. Normal color with no rashes, no lesions, and no evidence of cellulitis. MS/ Extremity: Pulses equal, no cyanosis. Neurovascular intact. Full, normal range of motion. Neuro: Awake and alert, GCS 15, oriented to person, place, time, and situation. Cranial nerves II-XII grossly intact. Motor strength 5/5 in all extremities. Sensory grossly intact. Cerebellar exam normal. Normal gait. Psych: Awake, alert, with orientation to person, place and time. Behavior, mood, and affect are within normal limits. 16:44 Eyes: Periorbital structures: appear normal, Pupils: equal, round, and reactive to light and accomodation, Extraocular movements: intact throughout, Conjunctiva: injected, in the left eye, tearing noted, in left eye, Corneas: abrasion, on the left, at 3 o'clock, Sclera: Anterior chamber: normal, Lids and lashes: appear normal, funduscopic exam reveals no obvious abnormalities, Visual saenz: are intact, Nystagmus: is not appreciated, Examination of the other eye reveals no obvious gross abnormality, a slit lamp exam was employed for the exam. Vital Signs: 16:32 BP 128 / 88; Pulse 104; Resp 19; Temp 97.9; Pulse Ox 98% on R/A; Weight 106.59 kg; jl7 Height 6 ft. 0 in. (182.88 cm); Pain 4/10; 17:23 BP 123 / 76; Pulse 86; Resp 18; Pulse Ox 99% on R/A; kr3 16:32 Body Mass Index 31.87 (106.59 kg, 182.88 cm) jl7 MDM: 16:30 Patient medically screened. jl9 16:40 Data reviewed: vital signs, nurses notes. jl9 16:45 Counseling: I had a detailed discussion with the patient and/or guardian regarding: the jl9 historical points, exam findings, and any diagnostic results supporting the discharge/admit diagnosis, the need for outpatient follow up, to return to the emergency department if symptoms worsen or persist or if there are any questions or concerns that arise at home. Administered Medications: 16:50 Drug: irrigation 1 application Route: Mucous Membrane; kr3 19:36 Follow up: Response: No adverse reaction kr3 Disposition Summary: 05/26/22 16:47 Discharge Ordered Location: Home jl9 Condition: Stable jl9 Diagnosis - Injury of conjunctiva and corneal abrasion without foreign body jl9 Followup: jl9 - With: Misael Montemayor MD - When: 1 - 2 days - Reason: Recheck today's complaints, Continuance of care, Re-evaluation by your physician Discharge Instructions: - Discharge Summary Sheet jl9 - Corneal Abrasion, [id number] jl9 Forms: - Medication Reconciliation Form jl9 - Thank You Letter jl9 - Antibiotic Education jl9 - Prescription Opioid Use jl9 Prescriptions: - ofloxacin 0.3 % Ophthalmic drops - instill 2 drop by OPHTHALMIC route 4 times per day for 7 days; 2.5 milliliter; jl9 Refills: 0, Product Selection Permitted Signatures: Onofre Hernandes RN RN jl7 Daljit Spann jl9 Martha Roldan, RN RN kr3
--- NOTE | 2022-05-26 16:48 | ER ---
Nurse's Notes [facility] Name: Aaron Link Age: 32 yrs Sex: Male : 1990 Arrival Date: 05/26/2022 Time: 16:24 Bed 16 Private MD: Diagnosis: Injury of conjunctiva and corneal abrasion without foreign body Presentation: 05/26 16:32 Chief complaint: Patient states: Possible piece of metal to left eye, bleeding noted. jl7 Coronavirus screen: At this time, the client does not indicate any symptoms associated with coronavirus-19. Ebola Screen: No symptoms or risks identified at this time. Mechanism of Injury: No Mechanism of Injury. The patient denies any loss of vision. Initial Sepsis Screen: Does the patient meet any 2 criteria? No. Patient's initial sepsis screen is negative. Does the patient have a suspected source of infection? No. Patient's initial sepsis screen is negative. Risk Assessment: Do you want to hurt yourself or someone else? Patient reports no desire to harm self or others. Onset of symptoms was May 26, 2022. 16:32 Method Of Arrival: Ambulatory [facility] 16:32 Acuity: CATRACHITA 3 jl7 Triage Assessment: 16:35 General: Appears in no apparent distress. uncomfortable, Behavior is calm, cooperative, jl7 appropriate for age. Pain: Complains of pain in left eye. EENT: tearing with blood noted. Historical: - Allergies: 16:35 Amoxicillin; jl7 - Home Meds: 16:35 albuterol as needed [Active]; jl7 - PMHx: 16:35 Asthma; jl7 - PSHx: 16:35 Tonsillectomy; Cholecystectomy; jl7 - Immunization history:: Adult Immunizations not up to date, Last tetanus immunization: > 10 years ago. - Social history:: Smoking status: Patient denies any tobacco usage or history of. Screenin:24 Abuse screen: Denies threats or abuse. Nutritional screening: No deficits noted. kr3 Tuberculosis screening: No symptoms or risk factors identified. Fall Risk None identified. Assessment: 16:35 General: Appears in no apparent distress. uncomfortable, Behavior is calm, cooperative, kr3 appropriate for age. Pain: Complains of pain in left eye. 17:22 Cardiovascular: Patient's skin is warm and dry. Respiratory: Airway is patent kr3 Respiratory effort is even, unlabored, Respiratory pattern is regular, symmetrical. GI: No signs and/or symptoms were reported involving the gastrointestinal system. : No signs and/or symptoms were reported regarding the genitourinary system. EENT: Eyes are tearing on outer aspect of conjuctiva of left eye, iris of left eye and inner aspect of conjunctiva of left eye. 17:25 EENT: Sclera/Cornea w/ abrasion noted on inner aspect of conjunctiva of left eye. kr3 Vital Signs: 16:32 BP 128 / 88; Pulse 104; Resp 19; Temp 97.9; Pulse Ox 98% on R/A; Weight 106.59 kg; jl7 Height 6 ft. 0 in. (182.88 cm); Pain 4/10; 17:23 BP 123 / 76; Pulse 86; Resp 18; Pulse Ox 99% on R/A; kr3 16:32 Body Mass Index 31.87 (106.59 kg, 182.88 cm) jl7 ED Course: 16:24 Patient arrived in ED. am2 16:30 Daljit Spann is PHCP. jl9 16:30 Ashley Vick MD is Attending Physician. jl9 16:35 Triage completed. jl7 16:35 Arm band placed on right wrist. jl7 16:35 Bed in low position. Call light in reach. Side rails up X 1. kr3 16:47 Martha Roldan RN is Primary Nurse. kr3 16:47 Misael Montemayor MD is Referral Physician. jl9 17:24 No provider procedures requiring assistance completed. Patient did not have IV access kr3 during this emergency room visit. Administered Medications: 16:50 Drug: irrigation 1 application Route: Mucous Membrane; kr3 19:36 Follow up: Response: No adverse reaction kr3 Medication: 17:25 VIS not applicable for this client. kr3 Outcome: 16:47 Discharge ordered by . jl9 17:24 Discharged to home ambulatory. kr3 17:24 Condition: stable 17:24 Discharge instructions given to patient, Instructed on discharge instructions, follow up and referral plans. medication usage, Demonstrated understanding of instructions, follow-up care, medications, Prescriptions given X 1. 17:25 Patient left the ED. kr3 Signatures: Onofre Hernandes RN RN jl7 Marilynn Nicholson am2 Daljit Spann9 Martha Roldan, RN RN kr3 Corrections: (The following items were deleted from the chart) 17:14 16:30 irrigation 1 application Mucous Membrane kr3 kr3
[2022-05-26 17:40] VITALS: BP 123/76; TEMP 97.9; O2SAT 99
== END 2022-05-26 17:25 | disposition home or self-care (01) ==
LOC: ER 16:22
DX: S05.02XA Injury of conjunctiva and corneal abrasion without foreign body, left eye, initial encounter (principal); Z88.1 Allergy status to other antibiotic agents
CPT/HCPCS: 99283

== ENCOUNTER → 2023-07-10 | Emergency (ER) | payer BC ==
[~2023-07-10] MED LIST: ASPIRIN 81 MG CHEWABLE TABLET ONE; ONDANSETRON 4 MG (ODT) TAB ONE
--- OUTSIDE RECORDS SUMMARY | 2023-07-10 03:19 | XMS REPORT | Continuity of Care Document ---
Author Name Unknown Address [address] [facility]. [address] [place] [address] [facility]connect Address [address] [facility] [address] [place] [address] Care Team Providers Care Still Cleaner Name Role Phone Pcp, Patient Does Not Have A Primary Care Physic pepe Mike Murray MD Attending Clinician [phone] MIKE MURRAY Attending Clinician Unavailable Doctor Unassigned, [place] Attending Clinician U navailable PAULA ROBLES Attending Clinician Unavailable Paula Hunt Attending Clinician Starr Srinivasan Attending Clinician Provider, [facility] Attending Clinician Un available STARR CAMPBELL Attending Clinician Unavailable MIEK MURRAY Admitting Clinician Unavailable Mike Murray MD Admitting Clinician [phone] PAULA ROBLES Admitting Clinician Unavailable Payers Payer Name Policy Type Policy Number Effective Date Expirati on Date Source Problems Condition Name Condition Details Condition Category Status Onset Date Resolution Date Last Treatment Date Treating Clinician Comments Source Obesity (BMI 30-39.9) Obesity (BMI 30-39.9) Disease Active 2021-07 00:00: 00 [facility] Eye foreign body, left, initial encounter Eye foreign body, left, initial encounter Disease Active 2021-07 00:00: 00 Overview: Formattin g of this note might be different from the original. Added automatic ally from request for surgery [id number] [facility] No known active problems No known active problems Disease [facility] Allergies, Adverse Reactions, Alerts Allergy Name Allergy Type Status Severity Reaction(s) Onset Date Inactive Date Treating Clinician Comments Source AMOXICIL CARMINE DRUG INGREDI Active Unknown-Cmnt 07-21 00:00: 00 [facility] Amoxicil carmine Drug Allergy Active Unknown - See comments 07-21 00:00: 00 Allergy as a child [facility] NO KNOWN ALLERGIE S Drug Class Active [facility] Social History Social Habit Start Date Stop Date Quantity Comments Source Exposure to SARS-CoV-2 (event) 2022-08-25 00:00:00 2022-09-04 13:35:00 Not sure [facility] Alcohol intake 2022-09-04 00:00:00 2022-09-04 00:00:00 Current drinker of alcohol (finding) [facility] History SDOH Alcohol Frequency 2020-07-21 00:00:00 2020-07-21 00:00:00 2 [facility] History SDOH Alcohol Std Drinks 2020-07-21 00:00:00 2020-07-21 00:00:00 1 [facility] History SDOH Alcohol Binge 2020-07-21 00:00:00 2020-07-21 00:00:00 1 [facility] Tobacco use and exposure 2020-07-21 00:00:00 2020-07-21 00:00:00 Smokeless tobacco non-user [facility] Sex Assigned At 1990 00:00:00 1990 00:00:00 [facility] Smoking Status Start Date Stop Date Source Unknown if ever smoked [facility] Never smoked tobacco [facility] Medications Ordered Medication Name Filled Medication Name Start Date Stop Date Current Medication? Ordering Clinician Indication Dosage Frequency Signature (SIG) Comments Components Source neomycin-po lymyxin-hyd rocortisone 3.5-10,000- 1 mg/mL-unit/ mL-% otic susp 2021-07 2-20 13:44: 24 Yes 2[drp] Place 2 Drops in both ears 4 (four) times daily. [facility] neomycin-po lymyxin-hyd rocortisone 3.5-10,000- 1 mg/mL-unit/ mL-% otic susp 2021-07 13:44: 24 Yes 2[drp] Place 2 Drops in both ears 4 (four) times daily. [facility] neomycin-po lymyxin-hyd rocortisone 3.5-10,000- 1 mg/mL-unit/ mL-% otic susp 2021-07 13:44: 24 Yes 2[drp] Place 2 Drops in both ears 4 (four) times daily. [facility] neomycin-po lymyxin-hyd rocortisone 3.5-10,000- 1 mg/mL-unit/ mL-% otic susp 2021-07 13:44: 24 Yes 2[drp] Place 2 Drops in both ears 4 (four) times daily. [facility] prednisoLON E acetate 1 % ophthalmic suspension drops 2021-07 00:00: 00 Yes [id number] 1[drp] Place 1 Drop in left eye 4 (four) times daily. [facility] prednisoLON E acetate 1 % ophthalmic suspension drops 2021-07 00:00: 00 Yes [id number] 1[drp] Place 1 Drop in left eye 4 (four) times daily. [facility] prednisoLON E acetate 1 % ophthalmic suspension drops 2021-07 00:00: 00 Yes [id number] 1[drp] Place 1 Drop in left eye 4 (four) times daily. [facility] prednisoLON E acetate 1 % ophthalmic suspension drops 2021-07 00:00: 00 Yes [id number] 1[drp] Place 1 Drop in left eye 4 (four) times daily. [facility] prednisoLON E acetate 1 % ophthalmic suspension drops 2021-07 00:00: 00 Yes [id number] 1[drp] Place 1 Drop in left eye 4 (four) times daily. [facility] prednisoLON E acetate 1 % ophthalmic suspension drops 2021-07 00:00: 00 Yes [id number] 1[drp] Place 1 Drop in left eye 4 (four) times daily. [facility] prednisoLON E acetate, PF, 1 % DrpS 2021-07 11:01: 08 05-31 00:00 :00 No 1[drp] Place 1 Drop in each eye 4 (four) times daily. Indication s: left eye [facility] ofloxacin 0.3 % ophthalmic solution 2021-07 11:01: 08 05-31 00:00 :00 No 2[drp] Place 2 Drops in left eye 4 (four) times daily. [facility] prednisoLON E acetate, PF, 1 % DrpS 2021-07 11:01: 08 05-31 00:00 :00 No 1[drp] Place 1 Drop in each eye 4 (four) times daily. Indication s: left eye [facility] ofloxacin 0.3 % ophthalmic solution 2021-07 11:01: 08 05-31 00:00 :00 No 2[drp] Place 2 Drops in left eye 4 (four) times daily. [facility] prednisoLON E acetate, PF, 1 % DrpS 2021-07 11:01: 08 05-31 00:00 :00 No 1[drp] Place 1 Drop in each eye 4 (four) times daily. Indication s: left eye [facility] ofloxacin 0.3 % ophthalmic solution 2021-07 11:01: 08 05-31 00:00 :00 No 2[drp] Place 2 Drops in left eye 4 (four) times daily. [facility] neomycin-po lymyxin-dex amethasone (MAXITROL) 3.5 mg/g-10,000 unit/g-0.1 % ophthalmic ointment 2021-07 00:00: 00 Yes [id number] .5[in_u s] Place 0.5 Inches in left eye 4 (four) times daily. [facility] neomycin-po lymyxin-dex amethasone (MAXITROL) 3.5 mg/g-10,000 unit/g-0.1 % ophthalmic ointment 2021-07 00:00: 00 Yes [id number] .5[in_u s] Place 0.5 Inches in left eye 4 (four) times daily. [facility] neomycin-po lymyxin-dex amethasone (MAXITROL) 3.5 mg/g-10,000 unit/g-0.1 % ophthalmic ointment 2021-07 00:00: 00 06-05 00:00 :00 No [id number] .5[in_u s] Place 0.5 Inches in left eye 4 (four) times daily. [facility] neomycin-po lymyxin-dex amethasone (MAXITROL) 3.5 mg/g-10,000 unit/g-0.1 % ophthalmic ointment 2021-07 00:00: 00 06-05 00:00 :00 No [id number] .[id number][in_u s] Place 0.5 Inches in left eye 4 (four) times daily. [facility] HYDROmorpho ne (DILAUDID) injection 0.2 mg 2021-07 20:51: 28 Yes .2mg 0.2 mg, Slow IV Push, Q5MIN PRN, 5 doses, Starting on Sat05/30/22 at 1451, Until Discontinu ed, Routine, Pain (scale 4-6), Pain (scale 7-10), PACU
Us e approved by (Faculty): PACU USE -ANESTHESI A SERVICE-HY DROMORPHON E INJECTIONS [facility] HYDROmorpho ne (DILAUDID) injection 0.2 mg 2021-07 20:51: 28 05-31 00:37 :00 No .2mg 0.2 mg, Slow IV Push, Q5MIN PRN, 5 doses, Starting on Sat05/30/22 at 1451, Until Sat05/30/22 at 1837, Routine, Pain (scale 4-6), Pain (scale 7-10), PACU
Us e approved by (Faculty): PACU USE -ANESTHESI A SERVICE-HY DROMORPHON E INJECTIONS [facility] HYDROcodone -acetaminop hen (NORCO 5) 5-325 mg tablet 1 tablet 2021-07 19:00: 00 05-30 20:26 :00 No 1{tbl} 1 tablet, Oral, ONCE, 1 dose, On Sat05/30/22 at 1300, Routine, PACU [facility] HYDROcodone -acetaminop hen (NORCO 5) 5-325 mg tablet 1 tablet 2021-07 19:00: 00 05-30 20:26 :00 No 1{tbl} 1 tablet, Oral, ONCE, 1 dose, On Sat05/30/22 at 1300, Routine, PACU [facility] FENTanyl PF (SUBLIMAZE (PF)) injection 25 mcg 2021-07 18:56: 15 05-30 20:11 :00 No 25ug 25 mcg, Slow IV Push, Q5MIN PRN, 4 doses, Starting on Sat05/30/22 at 1256, Until Discontinu ed, Routine, Pain (scale 7-10), PACU [facility] FENTanyl PF (SUBLIMAZE (PF)) injection 25 mcg 2021-07 18:56: 15 05-30 20:11 :00 No 25ug 25 mcg, Slow IV Push, Q5MIN PRN, 4 doses, Starting on Sat05/30/22 at 1256, Until Discontinu ed, Routine, Pain (scale 7-10), PACU [facility] FENTanyl PF (SUBLIMAZE (PF)) injection 25 mcg 2021-07 18:56: 11 Yes 25ug 25 mcg, Slow IV Push, Q5MIN PRN, 4 doses, Starting on Sat05/30/22 at 1256, Until Discontinu ed, Routine, Pain (scale 4-6), PACU [facility] FENTanyl PF (SUBLIMAZE (PF)) injection 25 mcg 2021-07 18:56: 11 05-31 00:37 :00 No 25ug 25 mcg, Slow IV Push, Q5MIN PRN, 4 doses, Starting on Sat05/30/22 at 1256, Until Sat05/30/22 at 1837, Routine, Pain (scale 4-6), PACU [facility] proMETHazin e (PHENERGAN) 25 mg in NS 50 mL IV piggyback (CNR) 2021-07 18:54: 59 05-30 19:12 :00 No 25mg 25 mg, IV Piggyback, at 200 mL/hr Administer over 15 Minutes, PRN, 1 dose, Starting on Sat05/30/22 at 1254, Until Sat05/30/22 at 1312, Routine, Nausea and Vomiting (N/V), PACU [facility] proMETHazin e (PHENERGAN) 25 mg in NS 50 mL IV piggyback (CNR) 2021-07 18:54: 59 05-30 19:12 :00 No 25mg 25 mg, IV Piggyback, at 200 mL/hr Administer over 15 Minutes, PRN, 1 dose, Starting on Sat05/30/22 at 1254, Until Sat05/30/22 at 1312, Routine, Nausea and Vomiting (N/V), PACU [facility] HYDROcodone -acetaminop hen (NORCO 5) 5-325 mg tablet 1 tablet 2021-07 18:36: 35 Yes 1{tbl} 1 tablet, Oral, PRN, 1 dose, Starting on Sat05/30/22 at 1236, Until Discontinu ed, Routine, Pain (scale 7-10), [facility] Recovery [facility] acetaminoph en-codeine (TYLENOL #3) 300-30 mg tablet 1 tablet 2021-07 18:36: 35 Yes 1{tbl} 1 tablet, Oral, PRN, 1 dose, Starting on Sat05/30/22 at 1236, Until Discontinu ed, Routine, Pain (scale 4-6), [facility] acetaminoph en (TYLENOL) tablet 500 mg 2021-07 18:36: 35 Yes 500mg 500 mg, Oral, PRN, 1 dose, Starting on Sat05/30/22 at 1236, Until Discontinu ed, Routine, Pain (scale 1-3), [facility] Recovery [facility] HYDROcodone -acetaminop hen (NORCO 5) 5-325 mg tablet 1 tablet 2021-07 18:36: 35 05-31 00:37 :00 No 1{tbl} 1 tablet, Oral, PRN, 1 dose, Starting on Sat05/30/22 at 1236, Until Sat05/30/22 at 1837, Routine, Pain (scale 7-10), [facility] Recovery [facility] acetaminoph en-codeine (TYLENOL #3) 300-30 mg tablet 1 tablet 2021-07 18:36: 35 05-31 00:37 :00 No 1{tbl} 1 tablet, Oral, PRN, 1 dose, Starting on Sat05/30/22 at 1236, Until Sat05/30/22 at 1837, Routine, Pain (scale 4-6), [facility] Recovery [facility] acetaminoph en (TYLENOL) tablet 500 mg 2021-07 18:36: 35 05-31 00:37 :00 No 500mg 500 mg, Oral, PRN, 1 dose, Starting on Sat05/30/22 at 1236, Until Sat05/30/22 at 1837, Routine, Pain (scale 1-3), [facility] Recovery [facility] FENTanyl PF (SUBLIMAZE (PF)) injection 25 mcg 2021-07 18:36: 18 Yes 25ug 25 mcg, Slow IV Push, Q5MIN PRN, 4 doses, Starting on Sat05/30/22 at 1236, Until Discontinu ed, Routine, Pain (scale 7-10), PACU [facility] FENTanyl PF (SUBLIMAZE (PF)) injection 25 mcg 2021-07 18:36: 18 Yes 25ug 25 mcg, Slow IV Push, Q5MIN PRN, 4 doses, Starting on Sat05/30/22 at 1236, Until Discontinu ed, Routine, Pain (scale 4-6), PACU [facility] ondansetron (ZOFRAN (PF)) injection 4 mg 2021-07 18:36: 18 Yes 4mg 4 mg, Slow IV Push, PRN, 1 dose, Starting on Sat05/30/22 at 1236, Until Discontinu ed, Routine, Nausea and Vomiting (N/V), PACU [facility] FENTanyl PF (SUBLIMAZE (PF)) injection 25 mcg 2021-07 18:36: 18 05-31 00:37 :00 No 25ug 25 mcg, Slow IV Push, Q5MIN PRN, 4 doses, Starting on Sat05/30/22 at 1236, Until Sat05/30/22 at 1837, Routine, Pain (scale 7-10), PACU [facility] FENTanyl PF (SUBLIMAZE (PF)) injection 25 mcg 2021-07 18:36: 18 05-31 00:37 :00 No 25ug 25 mcg, Slow IV Push, Q5MIN PRN, 4 doses, Starting on Sat05/30/22 at 1236, Until Sat05/30/22 at 1837, Routine, Pain (scale 4-6), PACU [facility] ondansetron (ZOFRAN (PF)) injection 4 mg 2021-07 18:36: 18 05-31 00:37 :00 No 4mg 4 mg, Slow IV Push, PRN, 1 dose, Starting on Sat05/30/22 at 1236, Until Sat05/30/22 at 1837, Routine, Nausea and Vomiting (N/V), PACU [facility] neomycin-po lymyxin-dex amethasone (MAXITROL) 3.5 mg/g-10,000 unit/g-0.1 % ophthalmic ointment 2021-07 18:27: 00 05-30 18:50 :11 No PRN, Starting on Sat05/30/22 at 1227, Until Sat05/30/22 at 1250, Routine, Intra-op [facility] Hyaluronida se, Human Recomb. (HYLENEX) 150 Units, bupivacaine (preserv free) 0.5% (SENSORCAIN E MPF) 0.5 % (5 mg/mL) 5 mL, lidocaine PF 2% (XYLOCAINE- MPF) 5 mL injection 2021-07 17:41: 00 05-30 18:50 :11 No PRN, Starting on Sat05/30/22 at 1141, Intra-op [facility] VISCOAT 0.5 ml (VISCOAT) 4-3 % (40-30 mg/mL) injection 2021-07 17:34: 00 05-30 18:50 :11 No PRN, Starting on Sat05/30/22 at 1134, Until Sat05/30/22 at 1250, Routine, Intra-op [facility] methylpredn isolone sod succ (SOLU-MEDRO L) injection 2021-07 17:30: 00 05-30 18:50 :11 No PRN, Starting on Sat05/30/22 at 1130, Until Sat05/30/22 at 1250, Routine, Intra-op [facility] neomycin-po lymyxin-hyd rocortisone 3.5-10,000- 1 mg/mL-unit/ mL-% otic susp 2021-07 16:31: 54 Yes 2[drp] Place 2 Drops in both ears 4 (four) times daily. [facility] albuterol 90 mcg/actuati on inhaler 2021-07 16:31: 54 Yes 2{puff} Inhale 2 Puffs every 6 (six) hours as needed for Wheezing or Shortness of Breath. [facility] prednisoLON E acetate, PF, 1 % DrpS 2021-07 16:31: 54 Yes 1[drp] Place 1 Drop in each eye 4 (four) times daily. Indication s: left eye [facility] ofloxacin 0.3 % ophthalmic solution 2021-07 16:31: 54 Yes 2[drp] Place 2 Drops in left eye 4 (four) times daily. [facility] levoFLOXaci n 500 mg tablet 2021-07 16:31: 54 Yes 500mg Take 500 mg by mouth every 24 (twenty-fo ur) hours. [facility] neomycin-po lymyxin-hyd rocortisone 3.5-10,000- 1 mg/mL-unit/ mL-% otic susp 2021-07 16:31: 54 Yes 2[drp] Place 2 Drops in both ears 4 (four) times daily. [facility] albuterol 90 mcg/actuati on inhaler 2021-07 16:31: 54 Yes 2{puff} Inhale 2 Puffs every 6 (six) hours as needed for Wheezing or Shortness of Breath. [facility] levoFLOXaci n 500 mg tablet 2021-07 16:31: 54 Yes 500mg Take 500 mg by mouth every 24 (twenty-fo ur) hours. [facility] neomycin-po lymyxin-hyd rocortisone 3.5-10,000- 1 mg/mL-unit/ mL-% otic susp 2021-07 16:31: 54 Yes 2[drp] Place 2 Drops in both ears 4 (four) times daily. [facility] albuterol 90 mcg/actuati on inhaler 2021-07 16:31: 54 Yes 2{puff} Inhale 2 Puffs every 6 (six) hours as needed for Wheezing or Shortness of Breath. [facility] levoFLOXaci n 500 mg tablet 2021-07 16:31: 54 Yes 500mg Take 500 mg by mouth every 24 (twenty-fo ur) hours. [facility] neomycin-po lymyxin-hyd rocortisone 3.5-10,000- 1 mg/mL-unit/ mL-% otic susp 2021-07 16:31: 54 Yes 2[drp] Place 2 Drops in both ears 4 (four) times daily. [facility] albuterol 90 mcg/actuati on inhaler 2021-07 16:31: 54 Yes 2{puff} Inhale 2 Puffs every 6 (six) hours as needed for Wheezing or Shortness of Breath. [facility] levoFLOXaci n 500 mg tablet 2021-07 16:31: 54 Yes 500mg Take 500 mg by mouth every 24 (twenty-fo ur) hours. [facility] neomycin-po lymyxin-hyd rocortisone 3.5-10,000- 1 mg/mL-unit/ mL-% otic susp 2021-07 16:31: 54 Yes 2[drp] Place 2 Drops in both ears 4 (four) times daily. [facility] albuterol 90 mcg/actuati on inhaler 2021-07 16:31: 54 Yes 2{puff} Inhale 2 Puffs every 6 (six) hours as needed for Wheezing or Shortness of Breath. [facility] levoFLOXaci n 500 mg tablet 2021-07 16:31: 54 Yes 500mg Take 500 mg by mouth every 24 (twenty-fo ur) hours. [facility] neomycin-po lymyxin-hyd rocortisone 3.5-10,000- 1 mg/mL-unit/ mL-% otic susp 2021-07 16:31: 54 Yes 2[drp] Place 2 Drops in both ears 4 (four) times daily. [facility] albuterol 90 mcg/actuati on inhaler 2021-07 16:31: 54 Yes 2{puff} Inhale 2 Puffs every 6 (six) hours as needed for Wheezing or Shortness of Breath. [facility] levoFLOXaci n 500 mg tablet 2021-07 16:31: 54 Yes 500mg Take 500 mg by mouth every 24 (twenty-fo ur) hours. [facility] neomycin-po lymyxin-hyd rocortisone 3.5-10,000- 1 mg/mL-unit/ mL-% otic susp 2021-07 16:31: 54 Yes 2[drp] Place 2 Drops in both ears 4 (four) times daily. [facility] albuterol 90 mcg/actuati on inhaler 2021-07 16:31: 54 Yes 2{puff} Inhale 2 Puffs every 6 (six) hours as needed for Wheezing or Shortness of Breath. [facility] levoFLOXaci n 500 mg tablet 2021-07 16:31: 54 Yes 500mg Take 500 mg by mouth every 24 (twenty-fo ur) hours. [facility] albuterol 90 mcg/actuati on inhaler 2021-07 16:31: 54 Yes 2{puff} Inhale 2 Puffs every 6 (six) hours as needed for Wheezing or Shortness of Breath. [facility] levoFLOXaci n 500 mg tablet 2021-07 16:31: 54 Yes 500mg Take 500 mg by mouth every 24 (twenty-fo ur) hours. [facility] albuterol 90 mcg/actuati on inhaler 2021-07 16:31: 54 Yes 2{puff} Inhale 2 Puffs every 6 (six) hours as needed for Wheezing or Shortness of Breath. [facility] levoFLOXaci n 500 mg tablet 2021-07 16:31: 54 Yes 500mg Take 500 mg by mouth every 24 (twenty-fo ur) hours. [facility] albuterol 90 mcg/actuati on inhaler 2021-07 16:31: 54 Yes 2{puff} Inhale 2 Puffs every 6 (six) hours as needed for Wheezing or Shortness of Breath. [facility] levoFLOXaci n 500 mg tablet 2021-07 16:31: 54 Yes 500mg Take 500 mg by mouth every 24 (twenty-fo ur) hours. [facility] albuterol 90 mcg/actuati on inhaler 2021-07 16:31: 54 Yes 2{puff} Inhale 2 Puffs every 6 (six) hours as needed for Wheezing or Shortness of Breath. [facility] prednisoLON E acetate, PF, 1 % DrpS 2021-07 16:31: 54 Yes 1[drp] Place 1 Drop in each eye 4 (four) times daily. Indication s: left eye [facility] ofloxacin 0.3 % ophthalmic solution 2021-07 16:31: 54 Yes 2[drp] Place 2 Drops in left eye 4 (four) times daily. [facility] levoFLOXaci n 500 mg tablet 2021-07 16:31: 54 Yes 500mg Take 500 mg by mouth every 24 (twenty-fo ur) hours. [facility] neomycin-po lymyxin-dex amethasone (MAXITROL) 3.5 mg/g-10,000 unit/g-0.1 % ophthalmic ointment 2021-07 16:16: 00 05-30 18:50 :11 No PRN, Starting on Sat05/30/22 at 1016, Until Sat05/30/22 at 1250, Routine, [facility] povidone-io [facility]ine (BETADINE) 5 % ophthalmic drops 2021-07 16:15: 00 05-30 18:50 :11 No PRN, Starting on Sat05/30/22 at 1015, Until Sat05/30/22 at 1250, Routine, [facility] triamcinolo ne acetonide (KENALOG) injection 2021-07 16:14: 00 05-30 18:50 :11 No PRN, Starting on Sat05/30/22 at 1014, Until Sat05/30/22 at 1250, Routine, Intra-op [facility] vancomycin (VANCOCIN) injection 2021-07 16:14: 00 05-30 18:50 :11 No PRN, Starting on Sat05/30/22 at 1014, Until Sat05/30/22 at 1250, MAKEDA, Intra-op [facility] EPINEPHrine 1:1,000 (1 mg/mL) (ADRENALIN) injection 2021-07 16:13: 00 05-30 18:50 :11 No PRN, Starting on Sat05/30/22 at 1013, Until Sat05/30/22 at 1250, Routine, Intra-op [facility] balanced salt soln no.1 irrig. (BSS PLUS) ophthalmic solution 2021-07 16:12: 00 05-30 18:50 :11 No PRN, Starting on Sat05/30/22 at 1012, Until Sat05/30/22 at 1250, Routine, Intra-op [facility] balanced salt soln no.2 irrig. (BSS) ophthalmic solution 2021-07 16:11: 00 05-30 18:50 :11 No PRN, Starting on Sat05/30/22 at 1011, Until Sat05/30/22 at 1250, Routine, Intra-op [facility] cyclopentol ate (CYCLOGYL) 2 % ophthalmic drops 1 Drop 2021-07 13:07: 27 05-30 13:51 :00 No 1[drp] 1 Drop, Left Eye, Q5MIN PRN, 3 doses, Starting on Sat05/30/22 at 0707, Until Discontinu ed, Routine, Surgery/Pr ocedure, DSU Pre-op [facility] phenylephri ne (KIANNA-SYNEPH RINE) 2.5 % ophthalmic drops 1 Drop 2021-07 13:07: 27 05-30 13:51 :00 No 1[drp] 1 Drop, Left Eye, Q5MIN PRN, 3 doses, Starting on Sat05/30/22 at 0707, Until Discontinu ed, Routine, Surgery/Pr ocedure, DSU Pre-op [facility] cyclopentol ate (CYCLOGYL) 2 % ophthalmic drops 1 Drop 2021-07 13:07: 27 05-30 13:51 :00 No 1[drp] 1 Drop, Left Eye, Q5MIN PRN, 3 doses, Starting on Sat05/30/22 at 0707, Until Discontinu ed, Routine, Surgery/Pr ocedure, DSU Pre-op [facility] phenylephri ne (KIANNA-SYNEPH RINE) 2.5 % ophthalmic drops 1 Drop 2021-07 13:07: 27 05-30 13:51 :00 No 1[drp] 1 Drop, Left Eye, Q5MIN PRN, 3 doses, Starting on Sat05/30/22 at 0707, Until Discontinu ed, Routine, Surgery/Pr ocedure, DSU Pre-op [facility] albuterol 90 mcg/actuati on inhaler 2021-07 06:55: 08 Yes 2{puff} Inhale 2 Puffs every 6 (six) hours as needed for Wheezing or Shortness of Breath. [facility] prednisoLON E acetate, PF, 1 % DrpS 2021-07 06:55: 08 Yes 1[drp] Place 1 Drop in each eye 4 (four) times daily. Indication s: left eye [facility] ofloxacin 0.3 % ophthalmic solution 2021-07 06:55: 08 Yes 2[drp] Place 2 Drops in left eye 4 (four) times daily. [facility] levoFLOXaci n 500 mg tablet 2021-07 06:55: 08 Yes 500mg Take 500 mg by mouth every 24 (twenty-fo ur) hours. [facility] neomycin-po lymyxin-hyd rocortisone 3.5-10,000- 1 mg/mL-unit/ mL-% otic susp 2021-07 06:55: 08 Yes 2[drp] Place 2 Drops in both ears 4 (four) times daily. [facility] ondansetron 8 mg disintegrat ing tablet 2021-07 00:00: 00 Yes [id number] 8mg Take 1 tablet by mouth every 6 (six) hours as needed for Nausea and Vomiting (N/V). [facility] ondansetron 8 mg disintegrat ing tablet 2021-07 00:00: 00 Yes [id number] 8mg Take 1 tablet by mouth every 6 (six) hours as needed for Nausea and Vomiting (N/V). [facility] ondansetron 8 mg disintegrat ing tablet 2021-07 00:00: 00 Yes [id number] 8mg Take 1 tablet by mouth every 6 (six) hours as needed for Nausea and Vomiting (N/V). [facility] ondansetron 8 mg disintegrat ing tablet 2021-07 00:00: 00 Yes [id number] 8mg Take 1 tablet by mouth every 6 (six) hours as needed for Nausea and Vomiting (N/V). [facility] ondansetron 8 mg disintegrat ing tablet 2021-07 00:00: 00 Yes [id number] 8mg Take 1 tablet by mouth every 6 (six) hours as needed for Nausea and Vomiting (N/V). [facility] ondansetron 8 mg disintegrat ing tablet 2021-07 00:00: 00 Yes [id number] 8mg Take 1 tablet by mouth every 6 (six) hours as needed for Nausea and Vomiting (N/V). [facility] ondansetron 8 mg disintegrat ing tablet 2021-07 00:00: 00 Yes [id number] 8mg Take 1 tablet by mouth every 6 (six) hours as needed for Nausea and Vomiting (N/V). [facility] ondansetron 8 mg disintegrat ing tablet 2021-07 00:00: 00 Yes [id number] 8mg Take 1 tablet by mouth every 6 (six) hours as needed for Nausea and Vomiting (N/V). [facility] ondansetron 8 mg disintegrat ing tablet 2021-07 00:00: 00 Yes [id number] 8mg Take 1 tablet by mouth every 6 (six) hours as needed for Nausea and Vomiting (N/V). [facility] ondansetron 8 mg disintegrat ing tablet 2021-07 00:00: 00 Yes [id number] 8mg Take 1 tablet by mouth every 6 (six) hours as needed for Nausea and Vomiting (N/V). [facility] ondansetron 8 mg disintegrat ing tablet 2021-07 00:00: 00 Yes [id number] 8mg Take 1 tablet by mouth every 6 (six) hours as needed for Nausea and Vomiting (N/V). [facility] prednisoLON E acetate (PRED-FORTE ) 1 % ophthalmic suspension drops 1 Drop 2021-07 01:15: 00 05-29 01:37 :00 No 1[drp] 1 Drop, Left Eye, ONCE, 1 dose, On Sat05/28/22 at 1915, Routine [facility] albuterol 90 mcg/actuati on inhaler 07-21 19:36: 15 Yes 2{puff} Inhale 2 Puffs every 6 (six) hours as needed for Wheezing or Shortness of Breath. [facility] albuterol 90 mcg/actuati on inhaler 07-21 19:36: 15 Yes 2{puff} Inhale 2 Puffs every 6 (six) hours as needed for Wheezing or Shortness of Breath. [facility] albuterol 90 mcg/actuati on inhaler 07-21 13:36: 15 Yes 2{puff} Inhale 2 Puffs every 6 (six) hours as needed for Wheezing or Shortness of Breath. [facility] montelukast 10 mg tablet 07-21 00:00: 00 Yes [id number] 10mg Take 1 tablet by mouth daily. [facility] montelukast 10 mg tablet 07-21 00:00: 00 Yes [id number] 10mg Take 1 tablet by mouth daily. [facility] montelukast 10 mg tablet 07-21 00:00: 00 Yes [id number] 10mg Take 1 tablet by mouth daily. [facility] montelukast 10 mg tablet 07-21 00:00: 00 Yes [id number] 10mg Take 1 tablet by mouth daily. [facility] montelukast 10 mg tablet 07-21 00:00: 00 Yes [id number] 10mg Take 1 tablet by mouth daily. [facility] montelukast 10 mg tablet 07-21 00:00: 00 Yes [id number] 10mg Take 1 tablet by mouth daily. [facility] montelukast 10 mg tablet 07-21 00:00: 00 Yes [id number] 10mg Take 1 tablet by mouth daily. [facility] montelukast 10 mg tablet 07-21 00:00: 00 Yes [id number] 10mg Take 1 tablet by mouth daily. [facility] montelukast 10 mg tablet 07-21 00:00: 00 Yes [id number] 10mg Take 1 tablet by mouth daily. [facility] montelukast 10 mg tablet 07-21 00:00: 00 Yes [id number] 10mg Take 1 tablet by mouth daily. [facility] montelukast 10 mg tablet 07-21 00:00: 00 Yes [id number] 10mg Take 1 tablet by mouth daily. [facility] montelukast 10 mg tablet 07-21 00:00: 00 Yes [id number] 10mg Take 1 tablet by mouth daily. [facility] montelukast 10 mg tablet 07-21 00:00: 00 Yes [id number] 10mg Take 1 tablet by mouth daily. [facility] montelukast 10 mg tablet 07-21 00:00: 00 Yes [id number] 10mg Take 1 tablet by mouth daily. [facility] montelukast 10 mg tablet 07-21 00:00: 00 Yes [id number] 10mg Take 1 tablet by mouth daily. [facility] Vital Signs Vital Name Observation Time Observation Value Comments S margiemiguel Body weight 2022-09-04 19:48:00 104.781 kg [facility] BMI 2022-09-04 19:48:00 31.33 kg/m2 [facility] Body weight 2022-07-03 19:44:00 104.781 kg [facility] BMI 2022-07-03 19:44:00 31.33 kg/m2 [facility] Body weight 2022-06-05 20:06:00 104.781 kg [facility] BMI 2022-06-05 20:06:00 31.33 kg/m2 [facility] Body height 2022-05-31 15:46:00 182.9 cm [facility] Body weight 2022-05-31 15:46:00 104.781 kg [facility] BMI 2022-05-31 15:46:00 31.33 kg/m2 [facility] Systolic blood pressure 2022-05-30 21:45:00 134 mm[Hg] [facility] Diastolic blood pressure 2022-05-30 21:45:00 89 mm[Hg] [facility] Respiratory rate 2022-05-30 21:45:00 9 /min [facility] Oxygen saturation in Arterial blood by Pulse oximetry 2022-05-30 21:45:00 97 /min [facility] Body temperature 2022-05-30 18:50:00 36.39 Pau [facility] Heart rate 2022-05-30 13:11:00 79 /min [facility] Body height 2022-05-30 13:11:00 182.9 cm [facility] Body weight 2022-05-30 13:11:00 105.1 kg [facility] BMI 2022-05-30 13:11:00 31.42 kg/m2 [facility] Respiratory rate 2022-05-30 13:23:00 16 /min [facility] Systolic blood pressure 2022-05-30 13:11:00 122 mm[Hg] [facility] Diastolic blood pressure 2022-05-30 13:11:00 85 mm[Hg] [facility] Heart rate 2022-05-30 13:11:00 79 /min [facility] Body temperature 2022-05-30 13:11:00 36.39 Pau [facility] Body height 2022-05-30 13:11:00 182.9 cm [facility] Body weight 2022-05-30 13:11:00 105.1 kg [facility] BMI 2022-05-30 13:11:00 31.42 kg/m2 [facility] Oxygen saturation in Arterial blood by Pulse oximetry 2022-05-30 13:11:00 99 /min [facility] Systolic blood pressure 2022-05-29 01:43:00 132 mm[Hg] [facility] Diastolic blood pressure 2022-05-29 01:43:00 81 mm[Hg] [facility] Heart rate 2022-05-29 01:43:00 72 /min [facility] Respiratory rate 2022-05-29 01:43:00 18 /min [facility] Oxygen saturation in Arterial blood by Pulse oximetry 2022-05-29 01:43:00 100 /min [facility] Body temperature 2022-05-28 21:53:00 36.67 Pau [facility] Body weight 2022-05-28 21:53:00 106.595 kg [facility] BMI 2022-05-28 21:53:00 31.87 kg/m2 [facility] Systolic blood pressure 2020-07-21 19:07:00 135 mm[Hg] [facility] Diastolic blood pressure 2020-07-21 19:07:00 87 mm[Hg] [facility] Heart rate 2020-07-21 19:07:00 81 /min [facility] Body temperature 2020-07-21 19:07:00 36.72 Pau [facility] Respiratory rate 2020-07-21 19:07:00 18 /min [facility] Body height 2020-07-21 19:07:00 182.9 cm [facility] Body weight 2020-07-21 19:07:00 106.595 kg [facility] BMI 2020-07-21 19:07:00 31.87 kg/m2 [facility] Oxygen saturation in Arterial blood by Pulse oximetry 2020-07-21 19:07:00 98 /min [facility] Procedures Procedure Date / Time Performed Performing Clinician Source OU SPECTRALIS OCT MACULA, BOTH EYES 2022-09-04 00:00:00 Mike Murray [facility] OU SPECTRALIS OCT MACULA, BOTH EYES 2022-07-03 00:00:00 Edwin oGng [facility] OS ULTRASOUND DIAG B SCAN, LEFT EYE 2022-06-05 00:00:00 Mike Murray [facility] ASSIGNMENT OF BENEFITS 2022-05-31 15:03:38 Docto r Unassigned, [place] [facility] SURGICAL PATHOLOGY EXAM 2022-05-30 17:07:00 Chirag Murray [facility] PARS PLANA VITRECTOMY 2022-05-30 15:01:00 Paloma Murray [facility] ENDOLASER PHOTOCOAGULATION 2022-05-30 15:01:00 Mike Murray [facility] FOREIGN BODY REMOVAL FROM EYE 2022-05-30 15:01:00 Mike Murray [facility] CONSENT/REFUSAL FOR DIAGNOSIS AND TREATMENT 2022-05-30 12:57:33 Doctor Unassigned, [place] [facility] CONSENT/REFUSAL FOR DIAGNOSIS AND TREATMENT 2022-05-30 12:57:33 Doctor Unassigned, [place] [facility] ASSIGNMENT OF BENEFITS 2022-05-30 12:54:57 Docto r Unassigned, [place] [facility] COMP. METABOLIC PANEL ([id number]) 2022-05-28 23:13:00 Paula Robles [facility] CBC WITH DIFF 2022-05-28 23:13:00 Paula Robles [facility] CONSENT/REFUSAL FOR DIAGNOSIS AND TREATMENT 2022-05-28 21:51:09 Doctor Unassigned, [place] [facility] Encounters Start Date/Time End Date/Time Encounter Type Admission Type Attending [facility] Care Facility Care Department Encounter ID Source 2022-09-04 13:30:00 2022-09-04 13:45:00 Office Visit Mike Murray [facility] 1..840.114 350.1.13.10 4.2.7.2.686 [id number] [facility] 2022-09-04 13:30:00 2022-09-04 13:30:00 Outpatient R MIKE MURRAY [facility] [id number] [facility] 2022-07-03 13:30:00 2022-07-03 14:45:20 Outpatient R MIKE MURRAY [facility] [id number] [facility] 2022-07-03 13:30:00 2022-07-03 14:45:20 Office Visit Mike Murray [facility] 1..840.114 350.1.13.10 4.2.7.2.686 [id number] [facility] 2022-06-05 13:45:00 2022-06-05 15:01:54 Outpatient MIKE MCGOWAN [facility] [id number] [facility] 2022-06-05 13:45:00 2022-06-05 15:01:54 Office [address] Mike Murray [facility] 1.2840.114 350.1.13.10 4.2.7.2.686 [id number] [facility] 2022-05-31 09:15:00 2022-05-31 11:08:32 Outpatient R MIKE MURRAY [facility] [id number] [facility] 2022-05-31 09:15:00 2022-05-31 11:08:32 Office Visit Mike Murray [facility] 1.840.114 350.1.13.10 4.2.7.2.686 [id number] [facility] 2022-05-31 00:00:00 2022-05-31 00:00:00 Orders Only Doctor Unassigned, [place] [facility] 1.2840.114 350.1.13.10 4.2.7.2.686 [id number] [facility] 2022-05-30 06:55:00 2022-05-30 16:19:00 Outpatient R MIKE MURRAY [facility] [id number] [facility] 2022-05-30 06:55:00 2022-05-30 16:19:00 Hospital Encounter [facility] 1.840.114 350.1.13.10 4.2.7.2.686 [id number] [facility] 2022-05-30 08:50:00 2022-05-30 10:46:00 Surgery [facility] 1.2840.114 350.1.13.10 4.2.7.2.686 [id number] [facility] 2022-05-30 00:00:00 2022-05-30 00:00:00 Orders Only Doctor Unassigned, [place] [facility] 1..114 350.1.13.10 4.2.7.2.686 [id number] [facility] 2022-05-28 15:58:00 2022-05-28 19:46:00 Emergency X PAULA ROBLES [facility] ERT [id number] [facility] 2022-05-28 15:58:00 2022-05-28 19:46:00 Emergency Paula Robles [facility] 1..114 350.1.13.10 4.2.7.2.686 [id number] [facility] 2020-08-29 00:00:00 2020-08-29 00:00:00 Refill Starr Campbell [facility] 1..114 350.1.13.10 4.2.7.2.686 [id number] [facility] 2020-07-21 12:52:49 2020-07-21 13:44:10 Urgent Care Provider, [facility] Ur[facility] Care Starr Campbell [facility] 1..114 350.1.13.10 4.2.7.2.686 [id number] [facility] 2020-07-21 13:00:00 2020-07-21 13:00:00 Outpatient R STARR CAMPBELL [facility] [id number] [facility] 2020-07-21 00:00:00 2020-07-21 00:00:00 Letter (Out) Doctor Unassigned, [place] [facility] 1.20.114 350.1.13.10 4.2.7.2.686 [id number] [facility] Results Test Description Test Time Test Comments Results Result Co mments Source [facility] SPECTRALIS OCT MACULA, BOTH [id number] 00:00:00* Test Item Value Reference Range Interpretation Comme [facility] IMP (test code = IMP) oCT 09/04/2022 OU: normal foveal contour, no fluid Lab Interpretation (test code = 68670-6) Abnormal [facility] SPECTRALIS OCT MACULA, BOTH [id number] 00:00:00* Test Item Value Reference Range Interpretation Comme nts IMP (test code = IMP) OCT MAC 07/03/2022 OD: normal OS: normal Lab Interpretation (test code = 91389-9) Normal [facility] SPECTRALIS OCT MACULA, BOTH [id number] 00:00:00* Test Item Value Reference Range Interpretation Comme nts IMP (test code = IMP) OCT MAC 07/03/2022 OD: normal OS: normal Lab Interpretation (test code = 60032-5) Normal [facility] ULTRASOUND DIAG B SCAN, LEFT EYE ([id number]) 2022-06-05 00:00:00* Test Item Value Reference Range Interpretation Comme [facility] IMP (test code = IMP) B scan 06/05/2022 OS: attached retina, some VH Lab Interpretation (test code = 42128-4) Abnormal [facility] ULTRASOUND DIAG B SCAN, LEFT EYE ([id number]) 2022-06-05 00:00:00* Test Item Value Reference Range Interpretation Comme [facility] IMP (test code = IMP) B scan 06/05/2022 OS: attached retina, some VH Lab Interpretation (test code = 10458-3) [facility] [id number] 16:45:00* Test Item Value Reference Range Interpretation Comme [facility] Case Report (test code = 4964761043) Surgical Pathology ?Case: [id number] ? Authorizing Provider: ?iMke Murray MD ?Collected: ? 05/30/2022 1107 ?Ordering Location: ? ? [facility] OR ? Received: ?05/30/2022 1115 ? Department ? Pathologist: ? Neha Harvey MD ?Specimen: ? ?OTHER, Foreign body removed from left eye for measurement & description please ? ? ? Final Diagnosis (test code = 2746654561) [id number] FuZzEwMzNcZnRuYmpcdWMx IHtccnRmMVxlcGljMTAxMD GdYZ5jzXmnxLx4iMycNWMb uvG2zZSbCGdow6fbDXT1k3 zjtrxsZOSkCVvmWo5sqHGr lRjzWdDuPJKaWWq1yJ97VD YpnA7kgFXtRZi5CHGwjGIk tsIrAnXlNSBwqNAdePU5EN IdAA7zpkmiKYeiDLitXBKn cbA3MTQeuKJrQ7WpNEPlBZ 3kadvlUMR7NKtdYUDdPTS1 SwAsEUXkx4Vlavh9UfLvyM FyZFxwbGFpblxmczIwXHBh ciBBLiBFWUUsIExFRlQsIE FMOeMUB91wXo8JSBmqAiLY B4VEPEscmDAcOGFoUJIcUC IWPTMDGUjGVjZCB6HERZyK CMSOGWuyOTnMJ6NPPYHBFO 3QLtZROV1CUT3GYCrpLUZz gc18GIV5AiOuq3O4SVZeKu CkGPGcCN0uoNwbACMiZL0d ADQpV6qbcC7wthj2HwIbIE ShIkI1IFFefbW3Txb8IBOa IJkyt4rbw4CqQ8AjkCDvmO a6e2awRZHcGxJ4nJMlKQmn Y5vwdqWwoBCdPPLsQQh1aQ ghAdFvENStv9ustiVqFqHm PKTfCOTtEDLweGzhzxw9aZ 05VTHdlH7ebFIyEPhawsSu KyE9IWsyPHCzHeJ7FIRzyF WrMGWnR6hnUXMcTPbcAAUi TZxkwVHoIEG7rFzij5Z6sB VzaGVldHtcZjBcZnMyOCBO k8LlMLk9fUzwL0WhVEZxIa K4yNCmZQJlOWpnDEKpEDKn nrN0hB95DJlqufA0gRVua4 Iyw45li100qE5koKThXUE5 NFMyKORjjFXuLOTeVVM1BX EtqWEfF9ofXKRtET6adfcg CNypFYzuOAFlrPT5IDYriI PuR8EmTIEyLDgxTOEteki1 LyRoJv9xqOXxfJmhIXtdp9 zyu1msiUHsZfx5ZJZrLqFq NypyAEfox1Kjs1nrWTPvuh 7bCFV3oNBgjYqqc0I5pFHg DYEahCDfgfKfLAGjIyW9KV nfDF0qlh41EMBpYZS9rr7t bGNccGdicmRyaGVhZFxwZ2 ZeILOfe049VGJjW8MiGWNk t3U4frTlIwHeCBItjHX6tj T2VEIyEZe5jULxcnZ8axJj gEJvQ8pitS9iNELxNE0fnx yqa1skPKtrQQveJTBciFK0 zxD0SXEmtIZeY1AqzL1gBW GnGDgzZYZnfrq6JzJrNr7r dGVyeTcyMFxzYmtwYWdlXH BnbmNvbnRccGduZGVjXHBs YWluXHBsYWluXGYwXGZzMj FaeQuwdOyilW8iIxPmPgDe VJnvJV0oXTMmX8bszOItGT JlXPCuD8ufHaLbzF9whGhs MVxjZjJcZnMyMFxwYXIgSS BoYXZlIHBlcnNvbmFsbHkg mfD1jAA7GUFoGOdsNWDeQG WkwMVwln5zcVfgWURqOJ0z IGFncmVlIHdpdGggYWxsIH U6WZSpjXEqvWHmwUBuYTHz eSByZXNpZGVudHMsIGZlbG ddy3Qqo0IgmCR9oZ3uf1kc e3XlFMGivVE7CS15ijZ7mM 1wJFRlVF6eJAHvVG8bsCGv xEJzGWQxc72ztIfvhiNnAP BvcnQuXHBsYWluXGYyXGZz MjhcbGFuZzEwMzNcaGljaF xtZponDgZeXTJvGQecU0zt RxOtBkFbCCzvSYU7cJ== Clinical Information (test code = 0624625563) Eye foreign body, left, initial encounter [T15.92XA] Gross Description (test code = 1984493976) h3prwFHqFVBnkIFvQHVlVQ jhqmXxCNXzgXLfQ7Lclheq XMaxJQ6dWU8nxEscxRTjqN RaLBLuZmYhh8kdr190pBSu e4paOPCExfcqlGf1bRdwX5 8cy8G0IadyU40nqQQyBQL7 AJMaEATkkULeRMKsLVO1UH QgjTLaP9ryQZKhZU4iysyj GKvfCAcuVRYbwGE9TZExnT LmY2VkLVCtGIqjPPLkjhx3 TpCsOn6qvVPvyXlrJHdpUj jduLirn7AuoPOkPMjfEBZb GYJcHXzwfxluADf3YXToRL jesWHiUB6swXcmClegoNjn b6OkaEUkCSrdYBSaYDClDM roATJhA8SGGCIoMXN1DLc9 IVXsTKq9TWpmM0WXOUJdWV OvBqBfVPC2HhV9KVf5DOCM Zt4dRUX9OWW9ASYvYwZ5SQ EwMiBcXHQgMiBcXGZsIFxc ZiBBcmlhbCBcXGZzIDEwIF lzmrU3RZIepcFdgLfihN4r VoLzZIVXBOPWKS2IQgWUTD PzleDSrXVjvM1adhUIAKws BDZkV1KarzXqFAEwIIYxGT rjGjRrWOEyh3c7bNKxIVLl BW22O8BwfhWlHOlbYKwywe ReCoBhSYRkFi4hJWpjaxQm z4L1YEZnuR22PESrGkKonY GoCAY9XCG8LUVch1PjrSUe l0BaTP9ivzTlRkNqDRIjkh ggnZzxgbFhjALga3HeNZXe WUAsi81riCM0kmIrNtUaVF 5zqJCtxXbsEPqifHgiwc9d bGFjaywgZmlybSwgcmFnZ2 FkJZOthjTqE07wAw2vaHVx EK1qCPfeRJ3pRNlhKJ5oAR QnSG7iO3Qch7XjrWXyzYVn kDXhyH56u3svINRsnzSqik VxaCLhOA2tEMHdYLPefULw hB2omhXvrlNruWAhvXN4GV OiXs6fTRxrg6UhDRD8BH9b ktR9pM6rRH0wjPjbRIioCG LcsMKyUNLheuHwCGFRk5vv UEOYNTJ7yILuraMlkWUeFX z9uKghLN7gJOffPF2cxXqq NFElWQEZJ2Yjs5unqGsbt6 AtiGEcLG44PWEwbUMaYEB8 BI1avHmtECE8 Disclaimer (test code = 5793965761) l0jmeBKhVTQtk3aiOHKlyC FuZzEwMzNcZnRuYmpcdWMx EQkxszOtDLrax0MqF4UuTu AwMFxhbnNpXGRlZmxhbmcx KDJoQJZ9szQnDLRfYYfyCT OrGGgbDe4mcEKtpZrpApRi CWDxc2bnbdZRFRshNhWaT0 67KMKcDFnpq9jlb8YvRFCq eXGik1Y8FNBAyjzbuJa3vB irZ38mi1G7XnjiE0axUVTr RKPpX5OxMR2nHGItNvz6UY G3EIX5LOBjORDpB2RnPY0b KSOseMZqXGc5i9sczAvoBS StONU3i0ofEBosnrQfIM0u ss1keZc5n0gmliXqCTKhTW IedVPEPPCzG7CmxXdmKt8v zYb4aEckOkhgJYG1Lsn9GQ 1iza25sbz2xVunFUIbltpu QpQ5XBooSOPjqaavBGh4MT wwXKPobLS9UVRajVBvX4Fc ZKNoLI2cavt2GYY4EOykPC KuDnA0RHGzbWBpWRTchBzb ZMvcu981WWN8EsWmXU3jC1 Fuc5P6aH4kvSIuZILftTBj PeLzYRQwsb8bmCYxEAmux2 DdJSN6hhD8zOWnaYXjPVTm DQ61Lvrvs5EiPykfq4ZhJ3 4ffEP7TAtpz8qaCV7tJvW6 qgJuGFxxv9fgcM7bMmK9LD fxZJ9tYN3fCLLdtN7aboqo XHBnYnJkcmhlYWRccGdicm BhKi0sqQivLQC8BOrcI3mh sY8wKaS6PByyT6aakG8kMA u9ZDvtlIO3DMIhqU4oLF6j rirsz0dpUTvnIKkmTRQhry W9qnE0DBQhcRUyZ0NihI7i CJQuDR8rorxbn2miXZW8CV cfDWOqHZG8FqSmVLPzs9Gw ghr9MdVtg2GieCHnHFvfX1 4so669SGIaipJjA1grrTPe irsrxXJjywmxSNqozxJ7KB SypzGgx5BfFGNnJDY9CNeg RKaoaMUqQMNseAudx0qiP5 RscGFyXHBsYWluXGYxXGZz MjBcbGFuZzEwMzNcaGljaF ftFIiwVsHcEXIoGOqlA8cu UuOhK1HyLHKzOzEkkLQjF9 ggVGhpcyByZXBvcnQgbWF5 CWfbM2g5PITjjaIxrDu1im JhZoRwCCMoTOZ0WRiudVVj LMOzw3CkyrojyIBvNu5xqN RuRDZkfG1hDOOuKPFdNZqc YN3vmQb0GFVUnFSygSCqOk STVVDoIO79alIdZHSRoxsf t1L3YXkxXXEdx1JilGAaF5 hlp6BrJREjz54bIT9le8Y8 w9dvODX8YX7im5AjMATpnK MzrYRfVQNnd7Ceitqqk2Zb UTYdtfEmk8ZzCARbofLsdY HpPDJxbaOorc2ygaAyXOTf NEKoY8MpexwfkWufqtGnDT Slzl0ijbYkSJK0RSWWJCKg QXIee9MxuE6fyMNMTJQ6cF Rlxz6ritIDdXEcBEXpyt88 NSWtIH9jI4rqVDAqYSXmgn MlwJQsk1IhRCDtdIU4zKAw LR9AWxBZz37kJGIsTLALnx KmGNDqeIebfPI4igB0xB3j IChGREEpLlx+IFRoZSBGRE NuQV0blvOjl6HpgxXqyZpd CADikEEif7PyzVZge4AecP obj1UfbYVytCBuDR0oRNEp clxwYXIgVVRNQiBMYWJvcm U5s0JtLZQqQXObCAW2dHnq pwi7IXSzyF3hQDOsE5lllj cbKFrtKYSqq8FbiR3awVLZ gDIbk8ZxvPViuLUFrKZyIV 9biyFgFRxZTOvWRAD4soQc WMHom6RdPChmT9khC14smF sgnGn9nLZ6XZX9mK4iCxv+ IFxwYXJccGFyIEFwcHJvcH QvGISyvLyoqhIjV5DekaQs sY5ujIXsnpAfPJ3zID4gF9 A4kCTfGTCtgwZxp9fmDSek dmUgYmVlbiByZXZpZXdlZC Fwg7VaWMudPEE4YLqrnnSt bmNsdWRpbmcgSCZFLCBTcG UasHDoSRA7PDsdccVstsIl MG6nvC4hmLugeW0wbUQwiZ Z3nnelCRSqTMFemKueZNSa FN5ehSZuUWFcshXOnVofbH GqdS1gK0FoGCCzHDCuhi9x URWgsC9kTVlfo0RmobjgPW JmLEXtXDCsymAbfk3hLRDg iXNDVB9PCMbmaSRlv7Hsud YnD0gSMBD4WJRaZqXrWvmc CZQfyFImaESgEZEehj39IM LghG8fzPesRCWbjG0wzY9i hFzjwK9uGgYzOqJoXRtlDW 0cODEdT9xipBSfTCOxIEXy E5lwPhWzrS0kwRlmPXdiIb DiErEfWEwdVRV2bY== Embedded Images (test code = 7651405114) [facility]. METABOLIC PANEL ([id number])2022-05-28 23:48:26* Test Item Value Reference Range Interpretation Comme nts NA (test code = 5574669567) 141 mmol/L 135-145 K (test code = 4996504669) 4.7 mmol/L 3.5-5.0 Slight hemolysis CL (test code = 0048601063) 102 mmol/L 98-108 CO2 TOTAL (test code = 7262748907) 25 mmol/L 23-31 AGAP (test code = 4561129237) 2-16 BUN (test code = 0319468035) 12 mg/dL 7-23 Slight hemolysis GLUCOSE (test code = 1594797327) 88 mg/dL 70-110 CREATININE (test code = 7080996066) 0.86 mg/dL 0.60-1.25 TOTAL BILI (test code = 1177277022) 0.9 mg/dL 0.1-1.1 CALCIUM (test code = 3859517734) 9.5 mg/dL 8.6-10.6 T PROTEIN (test code = 6456910354) 8.6 g/dL 6.3-8.2 H ALBUMIN (test code = 1088889149) 5.0 g/dL 3.5-5.0 ALK PHOS (test code = 9249235837) 71 U/L 34-122 Slight hemolysis ALTv (test code = 1742-6) 47 U/L 5-50 AST(SGOT) (test code = 2498431219) 37 U/L 13-40 Slight hemolysis eGFR (test code = 3573705882) mL/min/1.73m2 WINSOME (test code = WINSOME) Association of Glomerular Filtration Rate (GFR) and Staging of Kidney Disease* + -----+ --------+ +| GFR (mL/min/1.73 m2) ?| With Kidney Damage ?| ?Without Kidney Damage+ +------- +---- --+| ?>90 ?| ?Stage one ?| ? Normal ?+ ------+ ---------+--------- +| ?60-89 ?| ?Stage two ?| ? Decreased GFR ? + -----+ --------+ +| ?30-59 ?| ?Stage three ?| ? Stage three ? + -----+ --------+ +| ?15-29 ?| ?Stage four ? | ? Stage four ?+ ------+ ---------+--------- +| ?<15 (or dialysis) ? ?| ?Stage five ? | ? Stage five ?+ ------+ ---------+--------- + *Each stage assumes the associated GFR level has been in effect for at least three months. ?Stages 1 to 5, with or without kidney disease, indicate chronic kidney disease. Notes: Determination of stages one and two (with eGFR >59mL/min/1.73 m2) requires estimation of kidney damage for at least three months as defined by structural or functional abnormalities of the kidney, manifested by either:Pathological abnormalities or Markers of kidney damage (including abnormalities in the composition of the blood or urine or abnormalities in imaging tests). Lab Interpretation (test code = 74168-8) Abnormal [facility] WITH [id number] 23:25:21* Test Item Value Reference Range Interpretation Comme nts WBC (test code = 6690-2) See_Comment H [Automated [employer]] The system which generated this result transmitted reference range: 4.20 - 10.70 10*3/?L. The reference range was not used to interpret this result as normal/abnormal. RBC (test code = 789-8) See_Comment [Automated [employer]] The system which generated this result transmitted reference range: 4.26 - 5.52 10*6/?L. The reference range was not used to interpret this result as normal/abnormal. HGB (test code = 718-7) 13.9 g/dL 12.2-16.4 HCT (test code = 4544-3) 40.9 % 38.4-49.3 MCV (test code = 787-2) 86.7 fL 81.7-95.6 MCH (test code = 785-6) 29.4 pg 26.1-32.7 MCHC (test code = 786-4) 34.0 g/dL 31.2-35.0 RDW-SD (test code = 30438-6) 40.5 fL 38.5-51.6 RDW-CV (test code = 788-0) 12.9 % 12.1-15.4 PLT (test code = 777-3) See_Comment H [Automated [employer]] The system which generated this result transmitted reference range: 150 - 328 10*3/?L. The reference range was not used to interpret this result as normal/abnormal. MPV (test code = 97440-4) 10.5 fL 9.8-13.0 NRBC/100 WBC (test code = 6151450902) See_Comment [Automated me ssage] The system which generated this result transmitted reference range: 0.0 - 10.0 /100 WBCs. The reference range was not used to interpret this result as normal/abnormal. NRBC x10^3 (test code = 6811637544) See_Comment [Automated messa ge] The system which generated this result transmitted reference range: 10*3/?L. The reference range was not used to interpret this result as normal/abnormal. GRAN MAT (NEUT) % (test code = 770-8) 62.2 % IMM GRAN % (test code = 9848454026) 0.30 % LYMPH % (test code = 736-9) 28.5 % MONO % (test code = 5905-5) 7.5 % EOS % (test code = 713-8) 1.0 % BASO % (test code = 706-2) 0.5 % GRAN MAT x10^3(ANC) (test code = 8104151635) 7.33 10*3/uL 1.99-6.95 H IMM GRAN x10^3 (test code = 5068753657) 0.03 10*3/uL 0.00-0.06 LYMPH x10^3 (test code = 731-0) 3.36 10*3/uL 1.09-3.23 H MONO x10^3 (test code = 742-7) 0.89 10*3/uL 0.36-1.02 EOS x10^3 (test code = 711-2) 0.12 10*3/uL 0.06-0.53 BASO x10^3 (test code = 704-7) 0.06 10*3/uL 0.01-0.09 Lab Interpretation (test code = 53390-7) Abnormal [facility]"
[2023-07-10 04:28] LABS: Absolute Lymphocytes (CBC) 2.8 K/uL (0.7-4.9); Hematocrit 42.1 % (39.6-49.0); Lymphocytes % 31.7 % (15.3-44.8); MPV 9.1 fL (7.6-11.3); Platelets 269 thou/uL (152-406); RBC Red Blood Cell Count 4.84 M/uL (4.33-5.43)
[2023-07-10 04:33] LABS: Protime INR 0.97
[2023-07-10 04:40] LABS: Lipase 17 U/L (13-75)
[2023-07-10 04:41] LABS: C-Reactive Protein < 2.90 mg/L (<3.00)
[2023-07-10 04:49] LABS: ALT/SGPT 42 U/L (16-61); Albumin 3.6 g/dL (3.4-5.0); Alkaline Phosphatase 85 U/L (45-117); BUN Blood Urea Nitrogen 13 mg/dL (7-18); Bicarbonate 24 mEq/L (21-32); Bilirubin Total 0.3 mg/dL (0.2-1.0); Glomerular Filtration Rate 102 ml/min (=/>90); Glucose Level 118 mg/dL (74-106); NT PRO-BNP 6 pg/mL (<125); Protein, Total 7.7 g/dL (6.4-8.2); Sodium Level 138 mEq/L (136-145); Troponin High Sensitivity 15.2 pg/mL (<58.9)
[2023-07-10 04:54] LABS: AST/SGOT 24 U/L (15-37); Bilirubin Direct < 0.1 mg/dL (0-0.2); Bilirubin Indirect, Calculated ND mg/dL (0.2-0.8); Magnesium 2.1 mg/dL (1.6-2.4); Potassium 3.9 mEq/L (3.5-5.1)
[2023-07-10 05:06] LABS: Barbiturates NEGATIVE (NEGATIVE); Benzodiazepines NEGATIVE (NEGATIVE); Cocaine NEGATIVE (NEGATIVE); METHAMPHETAM NEGATIVE (NEGATIVE); Methadone NEGATIVE (NEGATIVE); Opiates NEGATIVE (NEGATIVE); Phencyclidine NEGATIVE (NEGATIVE); THC Cannibis NEGATIVE (NEGATIVE)
[2023-07-10 06:42] LABS: Thyroid Stimulating Hormone 2.15 uIU/mL (0.358-3.740); Troponin High Sensitivity 15.1 pg/mL (<58.9)
--- NOTE | 2023-07-10 06:54 | ER ---
Nurse's Notes [facility] Name: Aaron Link Age: 33 yrs Sex: Male : 1990 Arrival Date: 07/10/2023 Time: 03:15 Bed 6 Private MD: Diagnosis: Chest pain, unspecified;Non cardiac chest pain Presentation: 07/10 03:29 Chief complaint: Patient states: woke up from sleep at 0230 with non radiating chest kl pain pain initially at a 4 now at pain level of 2. Coronavirus screen: Vaccine status: Patient reports receiving the 2nd dose of the covid vaccine. Ebola Screen: Patient negative for fever greater than or equal to 101.5 degrees Fahrenheit, and additional compatible Ebola Virus Disease symptoms. Initial Sepsis Screen: Does the patient meet any 2 criteria? No. Patient's initial sepsis screen is negative. Does the patient have a suspected source of infection? No. Patient's initial sepsis screen is negative. Risk Assessment: Do you want to hurt yourself or someone else? Patient reports no desire to harm self or others. Onset of symptoms was July 10, 2023 at 02:30. 03:29 Method Of Arrival: Ambulatory 03:29 Acuity: CATRACHITA 3 03:43 Care prior to arrival: Medication(s) given: ASA. Triage Assessment: 03:31 General: Appears in no apparent distress. Behavior is calm, cooperative. Pain: Complains of pain in anterior aspect of left upper chest and mid-sternal area Pain does not radiate. Pain currently is 2 out of 10 on a pain scale. at worst was 4 out of 10 on a pain scale. Cardiovascular: Reports chest pain, nausea, shortness of breath. Respiratory: No deficits noted. GI: No deficits noted. No signs and/or symptoms were reported involving the gastrointestinal system. : No deficits noted. No signs and/or symptoms were reported regarding the genitourinary system. Derm: No deficits noted. No signs and/or symptoms reported regarding the dermatologic system. Musculoskeletal: No deficits noted. No signs and/or symptoms reported regarding the musculoskeletal system. Historical: - Allergies: 03:30 Amoxicillin; kl - Home Meds: 03:30 albuterol as needed [Active]; kl - PMHx: 03:30 Asthma; GERD (Tonsillectomy); kl - PSHx: 03:30 Cholecystectomy; Tonsillectomy; kl - Immunization history:: Adult Immunizations not up to date. - Social history:: Smoking status: Patient denies any tobacco usage or history of. - Family history:: not pertinent. Screenin:35 [facility] ED Fall Risk Assessment (Adult) History of falling in the last 3 months, jw7 including since admission No falls in past 3 months (0 pts) Score/Fall Risk Level 0 - 2 = Low Risk Oriented to surroundings, Maintained a safe environment. Abuse screen: Denies threats or abuse. Denies injuries from another. Nutritional screening: No deficits noted. Tuberculosis screening: No symptoms or risk factors identified. Assessment: 03:35 General: see triage assessment. jw7 03:35 Pain: Pain began suddenly. jw7 04:30 Reassessment: Patient appears in no apparent distress at this time. No changes from [facility] previously documented assessment. Patient and/or family updated on plan of care and expected duration. Pain level reassessed. Patient is alert, oriented x 3, equal unlabored respirations, skin warm/dry/pink. 05:30 Reassessment: Patient and/or family updated on plan of care and expected duration. Pain rv level reassessed. Patient is alert, oriented x 3, equal unlabored respirations, skin warm/dry/pink. 06:30 Reassessment: Patient appears in no apparent distress at this time. Patient and/or rv family updated on plan of care and expected duration. Pain level reassessed. Patient is alert, oriented x 3, equal unlabored respirations, skin warm/dry/pink. Vital Signs: 03:29 BP 137 / 107; Pulse 76; Resp 18; Pulse Ox 95% on R/A; Weight 108.86 kg (R); Height 6 kl ft. 0 in. ; Pain 2/10; 03:30 BP 132 / 87; Pulse 63; Resp 18 S; Pulse Ox 98% on R/A; jw7 04:30 BP 116 / 76; Pulse 57; Resp 17 S; Pulse Ox 98% on R/A; jw7 05:00 BP 109 / 78; Pulse 59; Resp 17; Pulse Ox 96% on R/A; rv 05:30 BP 98 / 68; Pulse 66; Resp 17; Pulse Ox 98% on R/A; rv 06:00 BP 102 / 64; Pulse 57; Resp 19; Pulse Ox 97% on R/A; rv 06:30 BP 103 / 67; Pulse 55; Resp 17; Pulse Ox 98% on R/A; rv 03:29 Body Mass Index 32.55 (108.86 kg, 182.88 cm) kl 03:29 Pain Scale: Adult Osman Coma Score: 06:30 Eye Response: spontaneous(4). Motor Response: obeys commands(6). Verbal Response: rv oriented(5). Total: 15. ED Course: 03:21 Patient arrived in ED. gm2 03:30 Triage completed. kl 03:33 Wiliam Omalley MD is Attending Physician. sp4 03:35 Patient has correct armband on for positive identification. Bed in low position. Call jw7 light in reach. Client placed on continuous cardiac and pulse oximetry monitoring. NIBP monitoring applied. 03:35 Arm band placed on. jw7 03:35 Patient maintains SpO2 saturation greater than 95% on room air. jw7 03:43 EKG completed in triage. Results shown to MD. kl 03:45 XRAY Chest (1 view) In Process Unspecified. EDMS 04:15 Inserted saline lock: 20 gauge in right hand, using aseptic technique. Blood collected. oe 05:58 Mario Mancuso, RN is Primary Nurse. rv 06:45 No provider procedures requiring assistance completed. rv 06:53 Tiburcio Calhoun MD is Referral Physician. sp4 07:04 IV discontinued, intact, bleeding controlled, No redness/swelling at site. Pressure rv dressing applied. Administered Medications: 04:40 Drug: Aspirin PO Chewable Tablet 324 mg PO once; 81 mg tablets x 4 Route: PO; rv 04:40 Drug: Ondansetron PO 4 mg PO once Route: PO; rv Medication: 06:45 VIS not applicable for this client. rv Outcome: 06:54 Discharge ordered by MD. sp4 07:04 Discharged to home ambulatory, with family, rv 07:04 Condition: good 07:04 Discharge instructions given to patient, Instructed on discharge instructions, follow up and referral plans. Demonstrated understanding of instructions, follow-up care, 07:04 Patient left the ED. rv Signatures: Dispatcher [employer] EDVT Cherry Pérez RN RN Luis Galvez oe Mario Mancuso, KOREY RN rv Waits, KOREY Weiss RN jw7 Wiliam Omalley MD MD sp4 Trice Anguiano gm2
--- NOTE | 2023-07-10 06:54 | EDPHYS ---
Physician Documentation [facility] Name: Aaron Link Age: 33 yrs Sex: Male : 1990 Arrival Date: 07/10/2023 Time: 03:15 Bed 6 Private MD: ED Physician Wiliam Omalley HPI: 07/10 03:39 This 33 yrs old Male presents to ER via Ambulatory with complaints of Chest sp4 Pain. 03:45 33-year-old male presents with acute onset of chest pressure starting 1 hour prior to sp4 arrival on awakening.. Patient denied exertional chest pain. Denied smoking cigarettes. Denied drug abuse. Prior history of coronary artery disease no prior history of heart defects, no family history of coronary artery disease.. Historical: - Allergies: 03:30 Amoxicillin; kl - Home Meds: 03:30 albuterol as needed [Active]; kl - PMHx: 03:30 Asthma; GERD (Tonsillectomy); kl - PSHx: 03:30 Cholecystectomy; Tonsillectomy; kl - Immunization history:: Adult Immunizations not up to date. - Social history:: Smoking status: Patient denies any tobacco usage or history of. - Family history:: not pertinent. ROS: 03:45 Constitutional: Negative for fever, chills, and weight loss, positive chest pain and sp4 nausea 03:45 All other systems are negative, Exam: 04:34 Constitutional: This is a well developed, well nourished patient who is awake, alert, sp4 and in no acute distress. Head/Face: Normocephalic, atraumatic. Eyes: Pupils equal round and reactive to light, extra-ocular motions intact. Lids and lashes normal. Conjunctiva and sclera are not injected. Cornea within normal limits. Periorbital areas with no swelling, redness, or edema. ENT: Nares patent. No nasal discharge, no septal abnormalities noted. Tympanic membranes are normal and external auditory canals are clear. Oropharynx with no redness, swelling, or masses, exudates, or evidence of obstruction, uvula midline. Mucous membranes moist. Neck: Trachea midline, no thyromegaly or masses palpated, and no cervical lymphadenopathy. Supple, full range of motion without nuchal rigidity, or vertebral point tenderness. Chest/axilla: Normal chest wall appearance and motion. Nontender with no deformity. No lesions are appreciated. Cardiovascular: Regular rate and rhythm with a normal S1 and S2. No gallops, murmurs, or rubs. Normal PMI, no JVD. No pulse deficits. Respiratory: Lungs have equal breath sounds bilaterally, clear to auscultation and percussion. No rales, rhonchi or wheezes noted. No increased work of breathing, no retractions or nasal flaring. Abdomen/GI: Soft, non-tender, with normal bowel sounds. No distension or tympany. No guarding or rebound. No evidence of tenderness throughout. Back: No spinal tenderness. No costovertebral tenderness. Skin: Warm, dry with normal turgor. Normal color with no rashes, no lesions, and no evidence of cellulitis. MS/ Extremity: Pulses equal, no cyanosis. Neurovascular intact. Full, normal range of motion. Neuro: Awake and alert, GCS 15, oriented to person, place, time, and situation. Cranial nerves II-XII grossly intact. Motor strength 5/5 in all extremities. Sensory grossly intact. Psych: Awake, alert, with orientation to person, place and time. Behavior, mood, and affect are within normal limits 04:34 ECG was reviewed by the Attending Physician. EKG time 0 337, normal sinus rhythm at the rate of 72, normal EKG, no active ectopy Vital Signs: 03:29 BP 137 / 107; Pulse 76; Resp 18; Pulse Ox 95% on R/A; Weight 108.86 kg (R); Height 6 kl ft. 0 in. ; Pain 2/10; 03:30 BP 132 / 87; Pulse 63; Resp 18 S; Pulse Ox 98% on R/A; jw7 04:30 BP 116 / 76; Pulse 57; Resp 17 S; Pulse Ox 98% on R/A; jw7 05:00 BP 109 / 78; Pulse 59; Resp 17; Pulse Ox 96% on R/A; rv 05:30 BP 98 / 68; Pulse 66; Resp 17; Pulse Ox 98% on R/A; rv 06:00 BP 102 / 64; Pulse 57; Resp 19; Pulse Ox 97% on R/A; rv 06:30 BP 103 / 67; Pulse 55; Resp 17; Pulse Ox 98% on R/A; rv 03:29 Body Mass Index 32.55 (108.86 kg, 182.88 cm) kl 03:29 Pain Scale: Adult kl Osman Coma Score: 06:30 Eye Response: spontaneous(4). Motor Response: obeys commands(6). Verbal Response: rv oriented(5). Total: 15. MDM: 03:34 Patient medically screened. sp4 06:52 Differential diagnosis: acute pericarditis, anxiety, chest wall pain, congestive heart sp4 failure costochondritis, esophagitis. HEART Score: History: Slightly Suspicious (0), ECG: Normal (0), Age: < or = 45 years (0), Risk Factors: No Risk Factors Known (0), Troponin: < or = 1 x Normal Limit (0), Total Score = 0. Data reviewed: vital signs, nurses notes, lab test result(s), EKG, radiologic studies, plain films. ED course: Patient's workup completely normal today. And troponin is negative today, patient possibly has sleep apnea with associated low oxygen at night and waking up with nightmares and chest pain. Recommend follow-up with primary care physician Dr. Calhoun to schedule a sleep study. . 07/10 03:34 Order name: Basic Metabolic Panel; Complete Time: 04:55 sp4 07/10 03:34 Order name: CBC with Diff; Complete Time: 04:35 sp4 07/10 03:34 Order name: LFT's; Complete Time: 04:55 sp4 07/10 03:34 Order name: Magnesium; Complete Time: 04:55 sp4 07/10 03:34 Order name: NT PRO-BNP; Complete Time: 04:55 sp4 07/10 03:34 Order name: PT-INR; Complete Time: 04:35 sp4 07/10 03:34 Order name: Troponin HS; Complete Time: 04:55 sp4 07/10 03:34 Order name: Urine Drug Screen; Complete Time: 05:18 sp4 07/10 03:46 Order name: Lipase; Complete Time: 04:55 sp4 07/10 03:46 Order name: CRP; Complete Time: 04:55 sp4 07/10 05:19 Order name: Troponin High Sensitivity; Complete Time: 06:50 sp4 07/10 06:14 Order name: T4 Free; Complete Time: 06:50 EDOR 07/10 06:14 Order name: Thyroid Stimulating Hormone; Complete Time: 06:50 EDMS 07/10 03:34 Order name: XRAY Chest (1 view) sp4 07/10 03:34 Order name: EKG; Complete Time: 03:34 sp4 07/10 03:34 Order name: Cardiac monitoring; Complete Time: 04:36 sp4 07/10 03:34 Order name: EKG - Nurse/Tech; Complete Time: 04:02 sp4 07/10 03:34 Order name: IV Saline Lock; Complete Time: 04:31 sp4 07/10 03:34 Order name: Labs collected and sent; Complete Time: 04:31 sp4 07/10 03:34 Order name: O2 Per Protocol; Complete Time: 04:31 sp4 07/10 03:34 Order name: O2 Sat Monitoring; Complete Time: 04:31 sp4 EC:34 Rate is 72 beats/min. Rhythm is regular, Normal Sinus Rhythm. QRS [place] is Normal. IA sp4 interval is normal. QRS interval is normal. QT interval is normal. No Q waves. T waves are Normal. No ST changes noted. Clinical impression: Normal ECG. Interpreted by me. Reviewed by me. Administered Medications: 04:40 Drug: Aspirin PO Chewable Tablet 324 mg PO once; 81 mg tablets x 4 Route: PO; rv 04:40 Drug: Ondansetron PO 4 mg PO once Route: PO; rv Disposition Summary: 07/10/23 06:54 Discharge Ordered Problem: new sp4 Symptoms: have improved sp4 Condition: Stable sp4 Diagnosis - Chest pain, unspecified sp4 - Non cardiac chest pain sp4 Followup: sp4 - With: Tiburcio Calhoun MD - When: 7 - 10 days - Reason: Recheck today's complaints Discharge Instructions: - Discharge Summary Sheet sp4 - Nonspecific Chest Pain, Adult, [id number] sp4 Forms: - Patient Portal Instructions sp4 Signatures: Dispatcher [employer] EDCherry Carias RN RN kl Vicente, Ronaldo, RN RN rv Potepalov, Sergey, MD MD sp4 Corrections: (The following items were deleted from the chart) 06:13 05:24 THYROID STIMULAT HORMONE+C.LAB.BRZ ordered. EDMS EDMS 06:13 05:24 T4 FREE+C.LAB.BRZ ordered. EDMS EDMS
[2023-07-10 09:19] VITALS: O2SAT 98
[2023-07-10 09:27] VITALS: BP 103/67
--- NOTE | 2023-07-10 11:50 | RAD REPORT ---
EXAM DESCRIPTION: RAD - Chest Single View - 07/10/2023 3:43 am CLINICAL HISTORY: The patient is 33 years old and is Male; CHEST PAIN TECHNIQUE: Single view of the chest. COMPARISON: No relevant prior studies available. FINDINGS: Lungs: No pulmonary vascular congestion or consolidation. Pleural space: Unremarkable. No pneumothorax. Heart: Unremarkable. No cardiomegaly. Mediastinum: Unremarkable. Normal mediastinal contour. Bones/joints: No acute fracture visualized. Upper abdomen: No free air in the visualized upper abdomen. IMPRESSION: No acute cardiopulmonary process identified. Electronically signed by: Ashley Gama MD 07/10/2023 05:05 AM [employer] MA[employer]GER Due to temporary technical issues with the PACS/Fluency reporting system, reports are being signed by the in house radiologist without review as a courtesy to ensure prompt reporting. The interpreting r adiologist is fully responsible for the content of the report.
--- NOTE | 2023-07-11 13:24 | EKG ---
Test Date: 2023-07-10 Test Time: 03:37:58 Trainmaster: JUDIT MEASUREMENT RESULTS: Intervals: Rate: 72 DE: 174 QRSD: 98 QT: 392 QTc: 429 [place]: P: 3 DE: 174 QRS: 15 T: -6 INTERPRETIVE STATEMENTS: Normal sinus rhythm Normal ECG Compared to ECG 09/19/2021 10:23:35 Sinus bradycardia no longer present Electronically Signed On 07-11-23 13:20:30 EDUCATIONAL SIGN LANGUAGE INTERPRETER by Adin Damon
== END ==
LOC: ER 03:15
DX: R07.89 Other chest pain (principal); J45.909 Unspecified asthma, uncomplicated; K21.9 Gastro-esophageal reflux disease without esophagitis; Z88.1 Allergy status to other antibiotic agents
CPT/HCPCS: 93005; 85025; 80048; 36415; 83735; 85610; 80076; 84443; 84484 ×2; 84439; 83690; 83880; 80307; 86140; 71045; 99285; Q0162